=== PATIENT | female | born 2005 | race Caucasian/White ===

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

== ENCOUNTER 2023-01-04 17:14 | Emergency (ER) | payer MEDICAID, SELFPAY ==
[2023-01-04 17:17] VITALS: BP 125/76; PULSE 99; RESP 16; TEMP 36.7; O2SAT 98; BMI 23.3
--- NOTE | 2023-01-04 17:41 | W.ED.FEMALGU ---
HPI - Female Genitourinary General: Chief complaint: Vaginal Bleeding Stated complaint: abd Pain Time Seen by Provider: 01/04/23 17:17 Source: patient Mode of arrival: ambulatory Limitations: no limitations History of Present Illness: Patient presents to the emergency department today for evaluation treatment of abnormal vaginal bleeding. Patient reports that she started having generalized abdominal cramps last night and, developed a little bit of spotting this morning. She indicates that prior to arrival she had sudden onset of significant vaginal bleeding including some clots. Patient reports she typically has 3-day periods that are generally very light. She states she is very regular and indicates that this bleeding seems early in her normal cycle. Patient is not currently on any type of control and is sexually active. She admits it is possible that she could be . Patient is felt nauseated without any vomiting. She has not had any diarrhea. She states she has felt chilled but no fevers. Review of Systems General: Reports: 10 or more systems reviewed and unremarkable except in HPI and below PFSH ED PFSH: Surgical History History of nasal polypectomy Hx of cholecystectomy Social History Smoking and tobacco status: never smoked Physical Exam Const: COMMON NORMALS: no acute distress, patient oriented x3 and alert HENMT: COMMON NORMALS: normocephalic, atraumatic, hearing grossly normal bilaterally and moist oral mucous membranes HEAD & SCALP: normocephalic and atraumatic Eye: COMMON NORMALS: Equal, round and reactive pupils present, EOMs intact bilaterally and conjunctivae normal CONJUNCTIVA: Yes conjunctivae normal PUPIL: Yes Equal, round and reactive pupils present Neck/C-Spine: COMMON NORMALS: full ROM and no JVD Lymph: LYMPHATIC: no lymphadenopathy noted Resp: COMMON NORMALS: normal respiratory effort, No retractions, No use of accessory muscles and clear to auscultation bilaterally AUSCULTATION: clear to auscultation bilaterally Cardio: COMMON NORMALS: no JVD, regular rate and regular rhythm RATE: regular rate RHYTHM: regular rhythm GI: OTHER: Normoactive bowel sounds. Patient is nontender on palpation. Abdomen is soft. : COMMON NORMALS: Yes no CVA tenderness BLADDER/KIDNEY EXAM: Yes no CVA tenderness Back/Pelvis: COMMON NORMALS: no CVA tenderness, no thoracic nor lumbar tenderness and thoraco-lumbar ROM normal Extremity: COMMON NORMALS: normal to inspection, full ROM and capillary refill normal Neuro: COMMON NORMALS: patient oriented x3 SENSORIUM/ORIENTATION: Yes alert Psych: COMMON NORMALS: mental status grossly normal, Normal thought process present, cooperative, normal affect and activity/motor behavior normal THOUGHT PROCESS: Normal thought process present Skin: COMMON NORMALS: no rashes or lesions noted and no wounds GENERAL SKIN EXAM: no rashes or lesions noted Course Vital Signs: Vital signs: Vital Signs Temperature 98.1 F 01/04/23 17:17 Pulse Rate 75 01/04/23 18:23 Respiratory Rate 16 01/04/23 18:23 Blood Pressure 122/66 01/04/23 18:23 Pulse Oximetry 98 01/04/23 18:23 Oxygen Delivery Me thod Room Air 01/04/23 18:23 MDM - Female Medical Decision Making Patient's urine test is negative. She shows no signs of any acute anemia and no signs of urinary tract infection. We had discussed having an ultrasound performed and, when ultrasound was ordered, patient declined having the ultrasound performed as she saw the coordinate measuring machine technician was a male. She refused a male biomass technician-even with her significant other and a female staff member in the room with her. Dr. Henry was notified by the staff of the patient's refusal of evaluation and he indicated patient could leave AMA. Patient was informed that at this time, there were no acute findings including no concerns for miscarriage as her urine hormone was negative however, without a full examination and evaluation here through the emergency department we are not able to rule out other potential harmful causes of abnormal vaginal bleeding. Patient verbalized understanding. Differential Diagnosis Likely abdominal pain (Miscarriage, subchorionic hemorrhage, abnormal menstrual cycle, PCOS, fibroid, abnormal endometrial thickening) and endometriosis Lab Data 01/04/23 17:45 01/04/23 17:30 Laboratory Results WBC 11.6 10^3/uL (4.5-13.0) 01/04/23 17:45 RBC 4.63 10^6/uL (4.1-5.3) 01/04/23 17:45 Hgb 13.6 g/dL (11.5-15.3) 01/04/23 17:45 Hct 40.9 % (37.0-47.0) 01/04/23 17:45 MCV 88.3 fl (81-99) 01/04/23 17:45 MCH 29.4 pg (28.0-34.0) 01/04/23 17:45 MCHC 33.3 g/dL (30.0-36.0) 01/04/23 17:45 RDW 12.2 % (12.1-15.1) 01/04/23 17:45 Plt Count 365 10^3/cmm (130-400) 01/04/23 17:45 MPV 9.8 fL (7.4-10.4) 01/04/23 17:45 Neut % (Auto) 72.7 % 01/04/23 17:45 Lymph % (Auto) 18.9 % 01/04/23 17:45 [place] % (Auto) 6.9 % 01/04/23 17:45 Eos % (Auto) 0.9 % 01/04/23 17:45 Baso % (Auto) 0.3 % 01/04/23 17:45 Neut # (Auto) 8.45 10^3/uL (1.8-8.0) H 01/04/23 17:45 Lymph # (Auto) 2.2 10^3/uL (1.5-6.5) 01/04/23 17:45 [place] # (Auto) 0.8 10^3/uL (0.2-0.9) 01/04/23 17:45 Eos # (Auto) 0.1 10^3/uL (0.0-0.8) 01/04/23 17:45 Baso # (Auto) 0.0 10^3/uL (0.0-0.1) 01/04/23 17:45 Nucleated RBC % (auto) 0 % 01/04/23 17:45 Nucleated RBCs # 0.0 /100WBC 01/04/23 17:45 Sodium 138 mmol/L (136-145) 01/04/23 17:30 Potassium 3.8 mmol/L (3.5-5.1) 01/04/23 17:30 Chloride 103 mmol/L (98-107) 01/04/23 17:30 Carbon Dioxide 23 mmol/L (22-29) 01/04/23 17:30 Anion Gap 15.8 (5-19) 01/04/23 17:30 BUN 12 mg/dL (6-20) 01/04/23 17:30 Creatinine 0.5 mg/dL (0.5-0.9) 01/04/23 17:30 GFR Calculation 158.9 mL/min (90-130) H 01/04/23 17:30 Glucose 98 mg/dL (65-115) 01/04/23 17:30 Calculated Osmolality 286 mOsm/kg (285-295) 01/04/23 17:30 Calcium 8.9 mg/dL (8.5-10.5) 01/04/23 17:30 Total Bilirubin 0.6 mg/dL (0.15-1.2) 01/04/23 17:30 AST 20 U/L (0-32) 01/04/23 17:30 ALT 14 U/L (0-33) 01/04/23 17:30 Alkaline Phosphatase 78 U/L (35-105) 01/04/23 17:30 Total Protein 7.5 g/dL (6.6-8.7) 01/04/23 17:30 Albumin 4.5 g/dL (3.5-5.2) 01/04/23 17:30 Globulin 3.0 g/dL (1.3-4.6) 01/04/23 17:30 HCG, Qual Negative (Negative) 01/04/23 17:45 Urine Color Red (Yellow) 01/04/23 17:45 Urine Appearance Hazy (CLEAR) A 01/04/23 17:45 Urine pH 6 (5-7) 01/04/23 17:45 Ur Specific [place] 1.010 (1.005-1.030) 01/04/23 17:45 Urine Protein Trace (Negative) 01/04/23 17:45 Urine Glucose (UA) Norm (Normal) 01/04/23 17:45 Urine Ketones Negative (Negative) 01/04/23 17:45 Urine Blood 3+ (Negative) H 01/04/23 17:45 Urine Nitrate Negative (Negative) 01/04/23 17:45 Urine Bilirubin Neg (Negative) 01/04/23 17:45 Urine Urobilinogen Norm mg/dL (Negative) 01/04/23 17:45 Ur Leukocyte Esterase Trace (Negative) H 01/04/23 17:45 Urine RBC Too numerous to cnt /hpf (0-2) H 01/04/23 17:45 Urine WBC 5-10 /hpf (0-5) H 01/04/23 17:45 Ur Squamous Epith Cells 0-4 /hpf (0-5) H 01/04/23 17:45 Amorphous Sediment Not Reportable 01/04/23 17:45 Urine Bacteria 1+ /hpf (NONE) H 01/04/23 17:45 Discharge Plan Discharge Patient Disposition: Left Against Medical Advice Clinical Impression: Vaginal bleeding Condition: Stable Prescriptions: No Action [id number] [Bromfed DM] 2-30-10 mg/5 mL syrup 7.5 ml PO Q6H PRN (Reason: sinus symptoms) Qty: 118 0RF albuterol sulfate [Ventolin HFA] 90 mcg/actuation HFA aerosol inhaler 1 - 2 puff inhalation Q6H PRN (Reason: shortness of breath or wheezing) Qty: 8.5 0RF Referrals: Noemi Al DO [Primary Care Provider] - Discharge Diet: Usual diet Discharge Activity: Resume usual activity Coding Level of Care Code ED Gasket Supervisor for Chg Jasmin
[2023-01-04] MEDS: ondansetron 2 mg/ML SDV 2 mL 4 MG IVP (17:52)
[2023-01-04 17:55] LABS: Basophils % 0.3 %; Eosinophils # 0.1 10^3/uL (0.0-0.8); Eosinophils % 0.9 %; Hematocrit 40.9 % (37.0-47.0); Hemoglobin 13.6 g/dL (11.5-15.3); Lymphocytes # 2.2 10^3/uL (1.5-6.5); Lymphocytes % 18.9 %; Mean Corpuscular HGB Conc 33.3 g/dL (30.0-36.0); Mean Corpuscular Hemoglobin 29.4 pg (28.0-34.0); Mean Corpuscular Volume 88.3 fl (81-99); Mean Platelet Volume 9.8 fL (7.4-10.4); Monocytes # 0.8 10^3/uL (0.2-0.9); Monocytes % 6.9 %; Neutrophils # 8.45 10^3/uL (1.8-8.0); Neutrophils % 72.7 %; Nucleated Red Blood Cells % 0 %; Platelet Count 365 10^3/cmm (130-400); Red Blood Count 4.63 10^6/uL (4.1-5.3); Red Cell Distribution Width 12.2 % (12.1-15.1); White Blood Count 11.6 10^3/uL (4.5-13.0)
[2023-01-04 18:05] LABS: Alanine Aminotransferase 14 U/L (0-33); Albumin Level 4.5 g/dL (3.5-5.2); Alkaline Phosphatase 78 U/L (35-105); Anion Gap 15.8 (5-19); Aspartate Amino Transferase 20 U/L (0-32); Blood Urea Nitrogen 12 mg/dL (6-20); Calcium 8.9 mg/dL (8.5-10.5); Carbon Dioxide 23 mmol/L (22-29); Chloride 103 mmol/L (98-107); Glomerular Filtration Rate 158.9 mL/min (90-130); Glucose 98 mg/dL (65-115); Osmolality Calculated 286 mOsm/kg (285-295); Potassium 3.8 mmol/L (3.5-5.1); Sodium 138 mmol/L (136-145); Total Bilirubin 0.6 mg/dL (0.15-1.2); Total Protein 7.5 g/dL (6.6-8.7)
[2023-01-04 18:06] LABS: HCG Qualitative Urine. Negative (Negative)
[2023-01-04 18:18] LABS: Add Urine Microscopic? YES; Bilirubin Urine Neg (Negative); Blood Urine 3+ (Negative); Glucose Urine UA Norm (Normal); Ketones Urine Negative (Negative); Leukocyte Esterase Urine Trace (Negative); Nitrate Urine Negative (Negative); Protein Urine Trace (Negative); Urine Appearance Hazy (CLEAR); Urine Color Red (Yellow); Urobilinogen Urine Norm (Negative); pH Urine 6 (5-7)
[2023-01-04 18:19] LABS: RBC Urine TOO NUMEROUS TO CNT /hpf (0-2)
[2023-01-04 18:20] LABS: Bacteria Urine 1+ /hpf; Squamous Epithelial Cell Urine 0-4 /hpf (0-5)
[2023-01-04 18:21] LABS: Add Urine Culture? Yes
[2023-01-04 18:23] VITALS: BP 122/66; PULSE 75; RESP 16; O2SAT 98
--- NOTE | 2023-01-04 19:00 | PC.NURSE ---
Report received from Carlota MEADE.
--- NOTE | 2023-01-04 19:20 | PC.NURSE ---
RN to bedside to tell pt we do not have a female [facility] able to come in. Pt wants to leave AMA, provider notified.
== END 2023-01-04 20:34 | disposition left against medical advice (07) ==
PROVIDERS: Emergency Provider Physician Assistant; PCP Family Medicine
DX: N93.9 Abnormal uterine and vaginal bleeding, unspecified (principal); Z53.29 Procedure and treatment not carried out because of patient's decision for other reasons
CPT/HCPCS: 80053; 81001; 81025; 85025; 87086; 96374; 99284; J2405

== ENCOUNTER 2023-04-03 19:40 | Emergency (ER) | payer MEDICAID, SELFPAY ==
--- NOTE | 2023-04-03 19:41 | XR_ITS ---
WS: [id number] Exam: XR chest 1V portable [id number] Date/Time of Exam: 04/03/2023 7:41 PM Reason For Exam: cough Comparison 06/04/2022. Findings: The lungs are clear and fully expanded. Costophrenic angles are sharp. No infiltrates. Bronchovascula r relief appears normal. Cardiac silhouette is unremarkable. Bony elements are intact. IMPRESSION: Unremarkable chest radiograph.
[2023-04-03 19:53] VITALS: BP 127/72; PULSE 98; RESP 18; TEMP 36.9; O2SAT 100; BMI 26.4
[2023-04-03 20:25] LABS: SARS Covid-2 Antigen negative (Negative)
== END 2023-04-03 22:14 | disposition left against medical advice (07) ==
PROVIDERS: Emergency Medicine; Emergency Provider Family Medicine; PCP Family Medicine
DX: Z53.21 Procedure and treatment not carried out due to patient leaving prior to being seen by health care provider (principal)
CPT/HCPCS: 71045; 87426; 99284

== ENCOUNTER 2023-04-06 10:07 | Emergency (ER) | payer MEDICAID, SELFPAY ==
[2023-04-06 10:30] VITALS: BP 105/70; PULSE 108; RESP 20; O2SAT 100
--- NOTE | 2023-04-06 11:16 | ECG_ITS ---
[facility] Test Date: 2023-04-06 Pat Name: Alma Yang Department: Room: Gender: Female Assistant Distribution Manager: : 2005 Requested By: Carmen Dowling Order Number: [id number] Linda MD: Ricki Chan Measurements Intervals [place] Rate: 86 P: 48 VA: 153 QRS: 53 QRSD: 80 T: 45 QT: 349 QTc: 418 Interpretive Statements SINUS RHYTHM WITH SINUS ARRHYTHMIA Compared to ECG 06/02/2022 05:23:25 No significant changes Electronically Signed On 04-06-2023 13:09:47 CDT by Ricki Chan [id number]
--- NOTE | 2023-04-06 11:25 | W.ED.ANXIETY ---
HPI - Anxiety General: Chief Complaint: Anxiety Stated Complaint: right side body numb Time Seen by Provider: 04/06/23 10:31 History of Present Illness: Summer is a 17-year-old female that presents to the emergency department with complaints of left-sided chest pain when lifting. She also reports this pain is reproducible when she lays on her left side. Patient has considerable anxiety related to this chest pain due to family circumstances. Her mother is currently on heart transplant waiting list. She states that she will intermittently have palpitations. And will intermittently have numbness to face and extremities. She denies any nausea or vomiting shortness of breath. Patient does have a history of seasonal allergies and takes albuterol as needed as well as pseudoephedrine. Associated symptoms: Deny chest pain, chills, confusion, fever(s), headache(s), malaise, nausea, palpitations or vomiting Review of Systems General: Reports: 10 or more systems reviewed and unremarkable except in HPI and below Const: Denies: fever(s), chills, change in appetite, change in weight, fatigue or malaise Eyes: Denies: change in vision, eye discomfort, eye discharge or eye redness ENMT: Denies: throat pain, enlarged tonsils, odynophagia, hoarseness, ear or mastoid pain, ear discharge, change in hearing, tinnitus, nasal discharge, nasal congestion, post nasal drip or sinus pain Card: Denies: chest pain, palpitations, irregular heart rhythm, edema, dyspnea on exertion, orthopnea or leg pain with exertion Resp: Denies: dyspnea, productive cough, non-productive cough, wheezing, stridor or chest congestion GI: Denies: abdominal pain, nausea, vomiting, dysphagia, diarrhea, constipation, bloating, GI cramping or hematochezia : Denies: flank pain, difficulty voiding, dysuria, urinary frequency, urinary urgency, urinary hesitancy, oliguria or hematuria Musc: Denies: neck pain, back pain, extremity pain, joint pain, joint swelling, joint redness, joint warmth or muscle weakness Skin/Breast: Denies: rash, pruritus, erythema, photosensitivity or new lesions Neuro: Denies: headache(s), numbness in extremities, weakness in extremities, sensory changes, lack of coordination, difficulty walking, frequent falls, dizziness, confusion, Slurred speech present, difficulty communicating thoughts, seizure-like activity or involuntary movements Endo: Denies: polyuria, polydipsia or tired all the time [place]/Lymph: Denies: easy bruising or easy bleeding PFSH ED PFSH: Surgical History History of nasal polypectomy Hx of cholecystectomy Social History Smoking and tobacco status: never smoked Physical Exam Const: COMMON NORMALS: no acute distress, patient oriented x3 and alert GENERAL APPEARANCE: cooperative ORIENTATION/CONSCIOUSNESS: Yes awake, Yes oriented to person, Yes oriented to place and Yes oriented to time HENMT: COMMON NORMALS: normocephalic and atraumatic HEAD & SCALP: normocephalic and atraumatic FACE & SINUS: normal facial exam MOUTH: Normal oral and palatal mucosa present THROAT: posterior oropharynx normal Eye: COMMON NORMALS: Equal, round and reactive pupils present, EOMs intact bilaterally, conjunctivae normal and no scleral icterus GENERAL EYE: appearance normal, both eyes and all related structures ALIGNMENT: Yes alignment normal PERIORBITAL: periorbital findings normal CONJUNCTIVA: Yes conjunctivae normal PUPIL: Yes Equal, round and reactive pupils present Neck/C-Spine: COMMON NORMALS: full ROM GENERAL: Yes normal visual inspection Lymph: LYMPHATIC: no lymphadenopathy noted Chest: COMMONS NORMALS: normal inspection of the chest Breast/axilla inspection: Yes no chest deformity, asymmetry, normal contours, no nodules, masses, tenderness OTHER: Patient is tender to palpation over left breast. Resp: COMMON NORMALS: normal respiratory effort, No retractions, No use of accessory muscles and clear to auscultation bilaterally EFFORT & INSPECTION: Yes able to speak in complete sentences and Yes symmetric chest movement AUSCULTATION: clear to auscultation bilaterally Cardio: COMMON NORMALS: regular rate, regular rhythm and Peripheral pulses 2+ throughout RATE: regular rate RHYTHM: regular rhythm PERIPHERAL PULSES: Peripheral pulses 2+ throughout GI: COMMON NORMALS: Normal to inspection, nondistended, normoactive bowel sounds present, Soft to palpation, non-tender and No hepatosplenomegaly present INSPECTION: Yes normal to inspection AUSCULTATION: Yes normoactive bowel sounds PALPATION: Yes Soft to palpation and Yes No hepatosplenomegaly present RECTAL EXAM: deferred Extremity: COMMON NORMALS: normal to inspection GENERAL: Yes normal exam except as noted Neuro: COMMON NORMALS: patient oriented x3 SENSORIUM/ORIENTATION: Yes alert, Yes oriented to person, Yes oriented to place and Yes oriented to time CRANIAL NERVES: Yes CN normal except as noted Psych: COMMON NORMALS: mental status grossly normal, Normal thought process present, cooperative, activity/motor behavior normal, denies homicidal ideation and denies suicidal ideation THOUGHT PROCESS: Normal thought process present Skin: COMMON NORMALS: no rashes or lesions noted, no wounds and turgor normal GENERAL SKIN EXAM: no rashes or lesions noted and turgor normal Course Vital Signs: Vital signs: Vital Signs Pulse Rate 88 04/06/23 12:28 Respiratory Rate 18 04/06/23 12:28 Blood Pressure 105/70 04/06/23 10:30 Pulse Oximetry 98 04/06/23 12:28 Oxygen Delivery Me thod Room Air 04/06/23 10:30 MDM - Anxiety Medical Decision Making Differential diagnosis includes cardiovascular event, pneumonia, pleural effusion, pleurisy, anxiety. Patient underwent CT head, XR chest, EKG, laboratory evaluation. Evaluation diagnostic and laboratory revealed no acute findings. Patient did respond well to Vistaril and Toradol. Based on her exam and her report of complaints, likely that this is musculoskeletal in nature. She can go home and continue to observe her symptoms. I am giving her the day off since she is supposed to be working 6 hours. She needs to return to the emergency department if she develops any new symptoms or worsening symptoms Lab Data 04/06/23 11:25 04/06/23 11:[address] 04/06/23 11:31 IMPRESSION: No CT evidence of acute intracranial pathology. Laboratory Results WBC 6.88 10^3/uL (4.5-13.0) 04/06/23 11:25 RBC 4.27 10^6/uL (3.85-5.65) 04/06/23 11:25 Hgb 12.80 g/dL (12.4-14.8) 04/06/23 11:25 Hct 38.1 % (36-47) 04/06/23 11:25 MCV 89.2 fl (85-98) 04/06/23 11:25 MCH 30.0 pg (27-33) 04/06/23 11:25 MCHC 33.6 g/dL (30-55) 04/06/23 11:25 RDW 12.2 % (12.1-15.1) 04/06/23 11:25 Plt Count 326 10^3/cmm (157-399) 04/06/23 11:25 MPV 9.9 fL (7.4-10.4) 04/06/23 11:25 Neut % (Auto) 58.3 % 04/06/23 11:25 Lymph % (Auto) 26.7 % 04/06/23 11:25 [place] % (Auto) 12.1 % 04/06/23 11:25 Eos % (Auto) 2.0 % 04/06/23 11:25 Baso % (Auto) 0.6 % 04/06/23 11:25 Neut # (Auto) 4.01 10^3/uL (1.8-8.0) 04/06/23 11:25 Lymph # (Auto) 1.8 10^3/uL (1.5-6.5) 04/06/23 11:25 [place] # (Auto) 0.8 10^3/uL (0.2-0.9) 04/06/23 11:25 Eos # (Auto) 0.1 10^3/uL (0.0-0.8) 04/06/23 11:25 Baso # (Auto) 0.0 10^3/uL (0.0-0.1) 04/06/23 11:25 Nucleated RBC % (auto) 0 % 04/06/23 11:25 Nucleated RBCs # 0.0 /100WBC 04/06/23 11:25 Sodium 140 mmol/L (136-145) 04/06/23 11:25 Potassium 3.9 mmol/L (3.5-5.1) 04/06/23 11:25 Chloride 106 mmol/L (98-107) 04/06/23 11:25 Carbon Dioxide 25 mmol/L (22-29) 04/06/23 11:25 Anion Gap 12.9 (5-19) 04/06/23 11:25 BUN 12 mg/dL (6-20) 04/06/23 11:25 Creatinine 0.5 mg/dL (0.5-0.9) 04/06/23 11:25 GFR Calculation 158.9 mL/min (90-130) H 04/06/23 11:25 Glucose 89 mg/dL (65-115) 04/06/23 11:25 Calculated Osmolality 289 mOsm/kg (285-295) 04/06/23 11:25 Calcium 8.8 mg/dL (8.5-10.5) 04/06/23 11:25 Total Bilirubin 0.7 mg/dL (0.15-1.2) 04/06/23 11:25 AST 18 U/L (0-32) 04/06/23 11:25 ALT 12 U/L (0-33) 04/06/23 11:25 Alkaline Phosphatase 71 U/L (35-105) 04/06/23 11:25 Total Protein 6.7 g/dL (6.6-8.7) 04/06/23 11:25 Albumin 4.2 g/dL (3.5-5.2) 04/06/23 11:25 Globulin 2.5 g/dL (1.3-4.6) 04/06/23 11:25 Discharge Plan Discharge Patient Disposition: Home Clinical Impression: Musculoskeletal chest pain, Acute anxiety, Hyperventilation Condition: Stable Prescriptions: New hydroxyzine pamoate [Vistaril] 25 mg capsule 25 mg PO BID PRN (Reason: Anxiousness) Qty: 20 0RF ketorolac 10 mg tablet 10 mg PO TID PRN (Reason: pain) 5 Days Qty: 15 0RF ondansetron 4 mg tablet,disintegrating 4 mg PO Q8H 5 Days Qty: 15 0RF No Action No Known Home Medications Discharge Orders: Discharge ED (Routine); Ordered 04/06/23 Ordered By: Carmen Dowling [facility] Referrals: Noemi Al DO [Primary Care Provider] - Discharge Diet: Advance as tolerated Discharge Activity: Resume usual activity Patient Instructions: Hydroxyzine (By mouth), Ketorolac (By mouth) (Toradol), Ondansetron (By mouth), Chest Wall Pain (ED), Pain Management Activity Restrictions/Additional Instructions: Please return to the emergency department for new concerning or worsening symptoms Coding Level of Care Code ED Casino Slot Supervisor for Ceci Castellanos
--- NOTE | 2023-04-06 11:31 | CTR_ITS ---
PROCEDURE INFORMATION: Exam: CT Head Without Contrast Exam date and time: 04/06/2023 12:17 PM Age: 17 years old Clinical indication: Numbness / parasthesia; Left; Additional info: Chest pain, numbness TECHNIQUE: Imaging protocol: Computed tomography of the head without contrast. Axial, coronal and sagittal reformatted images were created and reviewed. Radiation optimization: All CT scans at this facility use at least one of these dose optimization techniques: automated exposure control; mA and/or kV adjustment per patient size (includes targeted exams where dose is matched to clinical indication); or iterative reconstruction. REPORTING DATA: Count of CT and Cardiac NM exams in prior 12 months: This patient has received 2 known CTs and 0 known cardiac nuclear medicine studies in the 12 months prior to the current study. COMPARISON: CR XR cervical spine 3V* [id number] 09/12/2022 6:09 PM RADIATION DOSE METRICS: Total DLP (mGy-cm): 974.88 FINDINGS: Brain: No CT evidence of acute intracranial hemorrhage or acute territorial infarction. No significant mass effect or midline shift. Basal cisterns patent. Cerebral ventricles: Normal in size and configuration. Paranasal sinuses: Unremarkable. No fluid levels. Mastoid air cells: Grossly unremarkable. Bones/joints: No acute osseous abnormality. Soft tissues: Grossly unremarkable. CT/CT head wo con* [id number] IMPRESSION: No CT evidence of acute intracranial pathology.
--- NOTE | 2023-04-06 11:32 | XRR_ITS ---
PROCEDURE INFORMATION: Exam: XR Chest Exam date and time: 04/06/2023 11:46 AM Age: 17 years old Clinical indication: Chest wall pain; Additional info: Chest pain TECHNIQUE: Imaging protocol: Radiologic exam of the chest. Views: 1 view. COMPARISON: CR XR chest 1V portable [id number] 04/03/2023 7:55 PM FINDINGS: Lungs: Unremarkable. No consolidation. Pleural spaces: Unremarkable. No pleural effusion. No pneumothorax. Heart/Mediastinum: Unremarkable. No cardiomegaly. Bones/joints: Unremarkable. XR/XR chest 1V portable [id number] IMPRESSION: No acute radiographic findings.
[2023-04-06 11:41] LABS: Basophils % 0.6 %; Eosinophils # 0.1 10^3/uL (0.0-0.8); Hematocrit 38.1 % (36-47); Lymphocytes # 1.8 10^3/uL (1.5-6.5); Lymphocytes % 26.7 %; Mean Corpuscular HGB Conc 33.6 g/dL (30-55); Mean Corpuscular Volume 89.2 fl (85-98); Mean Platelet Volume 9.9 fL (7.4-10.4); Monocytes # 0.8 10^3/uL (0.2-0.9); Monocytes % 12.1 %; Neutrophils # 4.01 10^3/uL (1.8-8.0); Neutrophils % 58.3 %; Nucleated Red Blood Cells % 0 %; Platelet Count 326 10^3/cmm (157-399); Red Blood Count 4.27 10^6/uL (3.85-5.65); Red Cell Distribution Width 12.2 % (12.1-15.1); White Blood Count 6.88 10^3/uL (4.5-13.0)
[2023-04-06] MEDS: ketorolac 30 mg/mL INJ IVP (11:51)
[2023-04-06] MEDS: hyDROXYzine 25 mg Capsule PO (11:51)
[2023-04-06 12:10] LABS: Alanine Aminotransferase 12 U/L (0-33); Albumin Level 4.2 g/dL (3.5-5.2); Alkaline Phosphatase 71 U/L (35-105); Anion Gap 12.9 (5-19); Aspartate Amino Transferase 18 U/L (0-32); Blood Urea Nitrogen 12 mg/dL (6-20); Calcium 8.8 mg/dL (8.5-10.5); Carbon Dioxide 25 mmol/L (22-29); Chloride 106 mmol/L (98-107); Globulin 2.5 g/dL (1.3-4.6); Glomerular Filtration Rate 158.9 mL/min (90-130); Glucose 89 mg/dL (65-115); Osmolality Calculated 289 mOsm/kg (285-295); Potassium 3.9 mmol/L (3.5-5.1); Sodium 140 mmol/L (136-145); Total Bilirubin 0.7 mg/dL (0.15-1.2); Total Protein 6.7 g/dL (6.6-8.7)
[2023-04-06 12:28] VITALS: PULSE 88; RESP 18; O2SAT 98
--- NOTE | 2023-04-06 12:36 | PC.NURSE ---
PT PLACED ON CONTINUOUS NIBP,S PO2, AND CM
== END 2023-04-06 13:37 | disposition home or self-care (01) ==
PROVIDERS: Emergency Provider Nurse Practitioner; PCP Family Medicine
DX: R07.89 Other chest pain (principal); F41.9 Anxiety disorder, unspecified; R06.4 Hyperventilation
CPT/HCPCS: 36415; 70450; 71045; 80053; 85025; 93005; 96374; 99285; J1885

== ENCOUNTER 2023-06-16 18:24 | Emergency (ER) | payer MEDICAID, SELFPAY ==
[2023-06-16 18:33] VITALS: BP 114/61; PULSE 96; RESP 16; TEMP 36.6; O2SAT 98; BMI 25.0
--- NOTE | 2023-06-16 18:44 | CTR_ITS ---
PROCEDURE INFORMATION: Exam: CT Head Without Contrast Exam date and time: 06/16/2023 6:54 PM Age: 17 years old Clinical indication: Pain; Headache not specified; Additional info: New onset R sided headache TECHNIQUE: Imaging protocol: Computed tomography of the head without contrast. Radiation optimization: All CT scans at this facility use at least one of these dose optimization techniques: automated exposure control; mA and/or kV adjustment per patient size (includes targeted exams where dose is matched to clinical indication); or iterative reconstruction. REPORTING DATA: Count of CT and Cardiac NM exams in prior 12 months: This patient has received [address] and 0 known cardiac nuclear medicine studies in the 12 months prior to the current study. COMPARISON: CT head wo con* [id number] 04/06/2023 12:17 PM RADIATION DOSE METRICS: Total DLP (mGy-cm): 996.78 FINDINGS: Brain: Normal. No hemorrhage. Unremarkable white matter. No mass effect. Cerebral ventricles: No ventriculomegaly. Paranasal sinuses: Visualized sinuses are unremarkable. No fluid levels. Mastoid air cells: Visualized mastoid air cells are well aerated. Bones/joints: Unremarkable. No acute fracture. Soft tissues: Unremarkable. CT/CT head wo con* [id number] IMPRESSION: No acute intracranial abnormality.
--- NOTE | 2023-06-16 18:44 | W.ED.HA ---
HPI - Headache General: Chief Complaint: Headache Stated Complaint: migraine, r side facial pressure tingle Time Seen by Provider: 06/16/23 18:32 Source: patient Mode of arrival: ambulatory History of Present Illness: 17yo female [resent to the ER with new onset R sided migraine for the last week. Pt has had photohobia and mild nausea. No new head trauma. She tried various [id number] medications no relief. No history of migraines in the past. MD elicited complaint: headache Onset (ago): week(s) (1) Exacerbating factors: none Relieving factors: nothing Associated symptoms: Deny chest pain, confusion, cough, diaphoresis, eye pain, eye redness, fever(s), lightheadedness, loss of vision, malaise, nausea, neck stiffness, numbness, paresthesias, photophobia, pre-syncope, rash, seizures, short of breath, sound sensitivity, syncope, vomiting or weakness Treatments prior to arrival: none Review of Systems Const: Denies: fever(s), chills, fatigue, malaise or diaphoresis Card: Denies: chest pain, lightheadedness, syncope or pre-syncope Resp: Denies: dyspnea GI: Denies: abdominal pain, nausea or vomiting : Denies: flank pain, dysuria, urinary frequency or urinary urgency Musc: Reports: neck pain; Denies: back pain Skin/Breast: Denies: rash Neuro: Reports: headache(s); Denies: confusion PFSH ED PFSH: Surgical History History of nasal polypectomy Hx of cholecystectomy Social History Smoking and tobacco/nicotine status: never used tobacco/nicotine Female Reproductive History: Date of last menstrual period: 06/09/23 Physical Exam Const: GENERAL APPEARANCE: cooperative ORIENTATION/CONSCIOUSNESS: Yes awake, Yes oriented to person, Yes oriented to place and Yes oriented to time HENMT: COMMON NORMALS: normocephalic, atraumatic and hearing grossly normal bilaterally HEAD & SCALP: normocephalic and atraumatic Eye: DIRECT OPHTHALMOSCOPY: No photophobia Resp: COMMON NORMALS: normal respiratory effort, No retractions, No use of accessory muscles and clear to auscultation bilaterally AUSCULTATION: clear to auscultation bilaterally Cardio: COMMON NORMALS: regular rate, regular rhythm and No murmurs present (Cardio) RATE: regular rate RHYTHM: regular rhythm GI: COMMON NORMALS: Soft to palpation and No hepatosplenomegaly present AUSCULTATION: Yes normoactive bowel sounds PALPATION: Yes Soft to palpation, No Tenderness to palpation present (GI), No Guarding due to palpation present (GI) and Yes No hepatosplenomegaly present Extremity: COMMON NORMALS: normal to inspection, capillary refill normal, no clubbing, cyanosis or edema, no calf tenderness and no pedal edema Neuro: SENSORIUM/ORIENTATION: Yes oriented to person, Yes oriented to place and Yes oriented to time Skin: COMMON NORMALS: no rashes or lesions noted GENERAL SKIN EXAM: no rashes or lesions noted Course Vital Signs: Vital signs: Vital Signs Temperature 98 F 06/16/23 20:43 Pulse Rate 96 06/16/23 20:43 Respiratory Rate 16 06/16/23 20:43 Blood Pressure 114/61 06/16/23 20:43 Pulse Oximetry 98 06/16/23 20:43 MDM - Headache Medical Decision Making Improved with medications given. Patient declined that valproic acid discharge patient home with Phenergan to use as needed along with ibuprofen or Tylenol if has recurrent headaches. If persists follow-up with primary care doctor. Reviewed results of the CT which were negative. Medical Records I reviewed the patient's medical records. Lab Data I reviewed the patient's lab results. 06/16/23 19:14 06/16/23 19:[address] 06/16/23 18:44 IMPRESSION: No acute intracranial abnormality. Laboratory Results WBC 7.88 10^3/uL (4.5-13.0) 06/16/23 19:14 RBC 4.17 10^6/uL (3.85-5.65) 06/16/23 19:14 Hgb 12.60 g/dL (12.4-14.8) 06/16/23 19:14 Hct 37.2 % (36-47) 06/16/23 19:14 MCV 89.2 fl (85-98) 06/16/23 19:14 MCH 30.2 pg (27-33) 06/16/23 19:14 MCHC 33.9 g/dL (30-55) 06/16/23 19:14 RDW 12.2 % (12.1-15.1) 06/16/23 19:14 Plt Count 378 10^3/cmm (157-399) 06/16/23 19:14 MPV 9.6 fL (7.4-10.4) 06/16/23 19:14 Neut % (Auto) 56.0 % 06/16/23 19:14 Lymph % (Auto) 31.9 % 06/16/23 19:14 Prentiss % (Auto) 10.2 % 06/16/23 19:14 Eos % (Auto) 1.1 % 06/16/23 19:14 Baso % (Auto) 0.5 % 06/16/23 19:14 Neut # (Auto) 4.42 10^3/uL (1.8-8.0) 06/16/23 19:14 Lymph # (Auto) 2.5 10^3/uL (1.5-6.5) 06/16/23 19:14 Prentiss # (Auto) 0.8 10^3/uL (0.2-0.9) 06/16/23 19:14 Eos # (Auto) 0.1 10^3/uL (0.0-0.8) 06/16/23 19:14 Baso # (Auto) 0.0 10^3/uL (0.0-0.1) 06/16/23 19:14 Nucleated RBC % (auto) 0 % 06/16/23 19:14 Nucleated RBCs # 0.0 /100WBC 06/16/23 19:14 Sodium 139 mmol/L (136-145) 06/16/23 19:14 Potassium 3.8 mmol/L (3.5-5.1) 06/16/23 19:14 Chloride 104 mmol/L (98-107) 06/16/23 19:14 Carbon Dioxide 26 mmol/L (22-29) 06/16/23 19:14 Anion Gap 12.8 (5-19) 06/16/23 19:14 BUN 12 mg/dL (6-20) 06/16/23 19:14 Creatinine 0.5 mg/dL (0.5-0.9) 06/16/23 19:14 GFR Calculation 158.9 mL/min (90-130) H 06/16/23 19:14 Glucose 98 mg/dL (65-115) 06/16/23 19:14 Calculated Osmolality 288 mOsm/kg (285-295) 06/16/23 19:14 Calcium 9.1 mg/dL (8.5-10.5) 06/16/23 19:14 Total Bilirubin 0.8 mg/dL (0.15-1.2) 06/16/23 19:14 AST 20 U/L (0-32) 06/16/23 19:14 ALT 12 U/L (0-33) 06/16/23 19:14 Alkaline Phosphatase 71 U/L (35-105) 06/16/23 19:14 Total Protein 6.9 g/dL (6.6-8.7) 06/16/23 19:14 Albumin 4.5 g/dL (3.5-5.2) 06/16/23 19:14 Globulin 2.4 g/dL (1.3-4.6) 06/16/23 19:14 All radiology interpretation(s) finalized by discharge Discharge Plan Discharge Patient Disposition: Home Clinical Impression: Migraine Condition: Stable Prescriptions: New promethazine 25 mg tablet 25 mg PO Q6H PRN (Reason: Headache, nausea or vomiting) Qty: 20 0RF No Action ibuprofen 800 mg tablet 800 mg PO Q8H PRN (Reason: pain) Qty: 30 0RF methocarbamol 750 mg tablet 750 mg PO Q8H PRN (Reason: pain) Qty: 30 0RF Discharge Orders: Discharge ED (Routine); Ordered 06/16/23 Ordered By: Faustino Sosa Referrals: Conor Ramirez FNP [Primary Care Provider] - Discharge Diet: Usual diet Discharge Activity: Resume usual activity Patient Instructions: Migraine Headache (ED), Acute Headache (ED), Opioid Safety, Pain Management Activity Restrictions/Additional Instructions: Thank you for choosing [facility] for your healthcare needs today. Please realize this is an emergency room and that we are providing you with a medical screening exam and this may not be complete and all inclusive of all the testing and or work up that you may need to determine your ailment or severity of your illness. It is very important that you follow up as instructed or that you return to the Emergency Department should you have concerns or if your condition changes or worsens in any way. Coding Level of Care Code ED Roll Out Manager for Ceci Castellanos
[2023-06-16] MEDS: ketorolac 30 mg/mL INJ IVP (19:14)
[2023-06-16] MEDS: diphenhydrAMINE 50 mg/mL SDV 1mL IVP (19:15)
[2023-06-16] MEDS: sodium chloride 0.9% 1,000 ML 999 ML IV (19:18)
[2023-06-16 19:23] LABS: Basophils % 0.5 %; Eosinophils # 0.1 10^3/uL (0.0-0.8); Eosinophils % 1.1 %; Hematocrit 37.2 % (36-47); Lymphocytes # 2.5 10^3/uL (1.5-6.5); Lymphocytes % 31.9 %; Mean Corpuscular HGB Conc 33.9 g/dL (30-55); Mean Corpuscular Hemoglobin 30.2 pg (27-33); Mean Corpuscular Volume 89.2 fl (85-98); Mean Platelet Volume 9.6 fL (7.4-10.4); Monocytes # 0.8 10^3/uL (0.2-0.9); Monocytes % 10.2 %; Neutrophils # 4.42 10^3/uL (1.8-8.0); Nucleated Red Blood Cells % 0 %; Platelet Count 378 10^3/cmm (157-399); Red Blood Count 4.17 10^6/uL (3.85-5.65); Red Cell Distribution Width 12.2 % (12.1-15.1); White Blood Count 7.88 10^3/uL (4.5-13.0)
[2023-06-16 19:37] LABS: Alanine Aminotransferase 12 U/L (0-33); Albumin Level 4.5 g/dL (3.5-5.2); Alkaline Phosphatase 71 U/L (35-105); Aspartate Amino Transferase 20 U/L (0-32); Blood Urea Nitrogen 12 mg/dL (6-20); Calcium 9.1 mg/dL (8.5-10.5); Carbon Dioxide 26 mmol/L (22-29); Chloride 104 mmol/L (98-107); Globulin 2.4 g/dL (1.3-4.6); Glomerular Filtration Rate 158.9 mL/min (90-130); Glucose 98 mg/dL (65-115); Osmolality Calculated 288 mOsm/kg (285-295); Sodium 139 mmol/L (136-145); Total Bilirubin 0.8 mg/dL (0.15-1.2); Total Protein 6.9 g/dL (6.6-8.7)
[2023-06-16 19:40] LABS: Anion Gap 12.8 (5-19); Potassium 3.8 mmol/L (3.5-5.1)
[2023-06-16] MEDS: metoclopramide 5 mg/mL SDV 2 mL 10 MG IVP (19:44)
[2023-06-16] MEDS: valproic acid inj 500 MG in sodium chloride 0.9% 50 ML 55 MG IV (19:59)
[2023-06-16 20:43] VITALS: BP 114/61; PULSE 96; RESP 16; TEMP 36.6; O2SAT 98
--- NOTE | 2023-06-16 20:44 | PC.NURSE ---
pt refused valporic acid infusion after start of administration. pt states she did not want to be here for another hour of infusion. pt discharged.
== END 2023-06-16 20:44 | disposition home or self-care (01) ==
PROVIDERS: Emergency Provider Family Medicine; PCP Nurse Practitioner Family
DX: G43.909 Migraine, unspecified, not intractable, without status migrainosus (principal)
CPT/HCPCS: 70450; 80053; 85025; 96361; 96374; 96375; 99285; J1200; J1885; J2765; J3490; J7030

== ENCOUNTER 2023-06-21 22:12 | Emergency (ER) | payer MEDICAID, SELFPAY ==
[2023-06-21 22:54] VITALS: BP 114/73; PULSE 80; RESP 16; O2SAT 99
[2023-06-22 00:37] VITALS: BP 121/56; PULSE 77; RESP 16; O2SAT 98
--- NOTE | 2023-06-22 01:55 | W.ED.GENADLT ---
HPI - General Adult General: Chief complaint: General Medical Stated complaint: Left arm pain after IV Time Seen by Provider: 06/22/23 00:13 Source: patient History of Present Illness: 18-year-old female complaining of left upper extremity diffuse pain radiating into her breast and chest on the left side. She has noticed this after having had an IV in the ER earlier in the week. She saw her doctor on Friday, was prescribed prednisone, took the first dose, but it did not seem to help. When pain radiated into chest, she became worried. No redness, no fever, no vomiting. No significant shortness of breath. Associated symptoms: Reports chest pain; Deny dyspnea, palpitations or vomiting Review of Systems Const: Denies: fever(s) ENMT: Denies: throat pain Card: Reports: chest pain; Denies: palpitations, irregular heart rhythm or edema Resp: Denies: dyspnea, productive cough or non-productive cough GI: Denies: abdominal pain or vomiting Musc: Reports: extremity pain; Denies: back pain or extremity swelling PFSH ED PFSH: Surgical History History of nasal polypectomy Hx of cholecystectomy Social History Smoking and tobacco/nicotine status: never used tobacco/nicotine Physical Exam Const: COMMON NORMALS: no acute distress GENERAL APPEARANCE: cooperative; not ill appearing and not frail appearing HENMT: COMMON NORMALS: normocephalic, atraumatic and Normal external nose present HEAD & SCALP: normocephalic and atraumatic FACE & SINUS: normal facial exam and face symmetric NOSE: Normal external nose present Eye: COMMON NORMALS: Equal, round and reactive pupils present and EOMs intact bilaterally PUPIL: Yes Equal, round and reactive pupils present Neck/C-Spine: GENERAL: Yes trachea midline Chest: CHEST: Yes Symmetrical chest wall rise Resp: COMMON NORMALS: normal respiratory effort, No retractions, No use of accessory muscles and clear to auscultation bilaterally AUSCULTATION: clear to auscultation bilaterally Cardio: COMMON NORMALS: regular rate and regular rhythm RATE: regular rate RHYTHM: regular rhythm GI: COMMON NORMALS: Normal to inspection, nondistended, normoactive bowel sounds present Extremity: NARRATIVE EXTREMITY EXAM: Examination of the left upper extremity reveals no edema. There is no redness. There is no streaking. Range of motion is normal. there's tenderness along the medial aspect of the arm that is diffuse. Palpation of the axilla reveals a small tender mass. Neuro: LISY COMA SCALE: document GCS findings Lisy coma scale eye opening: Spontaneous Lisy coma scale verbal response: Orientated Ilsy coma scale motor response: Obey commands Lisy coma scale total score: 15 SENSORY EXAM: Yes extremities (intact) Psych: COMMON NORMALS: speech normal SPEECH: Yes normal speech Skin: COMMON NORMALS: no rashes or lesions noted GENERAL SKIN EXAM: no rashes or lesions noted Course Vital Signs: Vital signs: Vital Signs Pulse Rate 82 06/22/23 02:24 Respiratory Rate 16 06/22/23 02:24 Blood Pressure 101/69 06/22/23 02:24 Pulse Oximetry 100 06/22/23 02:24 MDM - General Adult Medical Decision Making Patient is afebrile, nontachycardic, not on hypoxic. No redness noted to the arm. No edema. Bedside ultrasound performed by me reveals compressibility of the upper extremity veins including cephalic basilic axillary and subclavian. She will be allowed to discharge. We will treat with aspirin and antibiotics. She does have a tender swollen lymph node in the axillary position. No radiology studies performed this visit Discharge Plan Discharge Patient Disposition: Home Clinical Impression: Superficial thrombophlebitis, Acute lymphadenitis of arm Condition: Stable Prescriptions: New aspirin 325 mg capsule 325 mg PO DAILY Qty: 30 0RF hydrocodone-acetaminophen 5-325 mg tablet 1 tab PO Q8H PRN (Reason: pain) Qty: 7 0RF doxycycline hyclate 100 mg tablet 100 mg PO BID 7 Days Qty: 14 0RF No Action prednisone 20 mg tablet See Rx Instructions .Route .COMPLEX Qty: 11 0RF Rx Instructions: 2 tabs x 3 days, then 1 tabs x 3 days, then 1/2 tab x 3 days. Discharge Orders: Discharge ED (Routine); Ordered 06/22/23 Ordered By: Ryan Oshea Referrals: Conor Ramirez FNP [Primary Care Provider] - Patient Instructions: Adenitis (ED), Phlebitis (ED), Opioid Safety, Pain Management Activity Restrictions/Additional Instructions: Return for fever greater than 100, worsening pain despite treatment, worsening swelling of the arm, shortness of breath, other concerning symptoms. See your doctor next week for follow-up. Stand Alone Forms: Work/School Release Coding Level of Care Code ED Land Survey Technician for Ceci Castellanos
[2023-06-22] MEDS: doxycycline 100 mg Tablet PO (02:17)
[2023-06-22] MEDS: oxyCODONE-APAP 5-325 mg Tablet 1 TAB PO (02:17)
[2023-06-22 02:24] VITALS: BP 101/69; PULSE 82; RESP 16; O2SAT 100
== END 2023-06-22 02:25 | disposition home or self-care (01) ==
PROVIDERS: Emergency Provider Emergency Medicine; PCP Nurse Practitioner Family
DX: I80.8 Phlebitis and thrombophlebitis of other sites (principal); I88.8 Other nonspecific lymphadenitis
CPT/HCPCS: 99283

== ENCOUNTER 2023-06-25 18:56 | Emergency (ER) | payer MEDICAID, SELFPAY ==
[2023-06-25 19:05] VITALS: BP 113/77; PULSE 106; RESP 18; TEMP 36.7; O2SAT 94; BMI 25.0
--- NOTE | 2023-06-25 19:08 | ECG_ITS ---
[facility] Test Date: 2023-06-25 Pat Name: Alma Yang Department: Room: Gender: Female Top Inventory Control Executive: : 2005 Requested By: Hema Pizano Order Number: [id number] Linda MD: Mark Driver M.D. Measurements Intervals Rogers Rate: 105 P: 68 DE: 128 QRS: 88 QRSD: 77 T: 53 QT: 329 QTc: 436 Interpretive Statements SINUS TACHYCARDIA ABNORMAL RHYTHM ECG Compared to ECG 04/06/2023 11:53:11 Heart rate is increased Electronically Signed On 06-26-2023 12:51:04 GLOBAL IMPLEMENTATION MANAGER by Mark Driver M.D. [email or web address]
--- NOTE | 2023-06-25 19:11 | XRR_ITS ---
PROCEDURE INFORMATION: Exam: XR Chest Exam date and time: 06/25/2023 7:36 PM Age: 18 years old Clinical indication: Chest wall pain; Additional info: Palitation, chest pain TECHNIQUE: Imaging protocol: Radiologic exam of the chest. Views: 1 view. COMPARISON: CR XR chest 1V portable [id number] 04/06/2023 11:46 AM FINDINGS: Tubes, catheters and devices: Monitoring device projects over the mid chest. Lungs: Unremarkable. No consolidation. Pleural spaces: Unremarkable. No pleural effusion. No pneumothorax. Heart/Mediastinum: Unremarkable. No cardiomegaly. Bones/joints: Unremarkable. XR/XR chest 1V portable [id number] IMPRESSION: No acute findings.
--- NOTE | 2023-06-25 19:17 | ED_ITS ---
HPI - Chest Pain General: Chief Complaint: Chest Pain Stated Complaint: fast heart rate Time Seen by Provider: 06/25/23 19:08 History of Present Illness: Patient presents to the ER with left-sided chest pain heart palpitations. Patient is wearing a heart monitor currently for these heart palpitations however her phone was all day today and she said it does not send when her phone is . 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 Patient does states she has a lifting restriction at work but due to COVID they are short staffed and she was not able to follow it. Patient does say when she flexes her pack her LAD muscle the pain is worse. Patient denies any nausea vomiting shortness of breath or diaphoresis. Review of Systems General: Reports: 10 or more systems reviewed and unremarkable except in HPI and below PFSH ED PFSH: Surgical History History of nasal polypectomy Hx of cholecystectomy Social History Smoking and tobacco/nicotine status: never used tobacco/nicotine Female Reproductive History: Date of last menstrual period: 06/03/23 Physical Exam Const: COMMON NORMALS: no acute distress, average body habitus, patient oriented x3, no limitations, healthy appearing, alert and well nourished HENMT: COMMON NORMALS: normocephalic, atraumatic, hearing grossly normal bilaterally, external ears normal, Normal external nose present, moist oral mucous membranes and oropharynx normal HEAD & SCALP: normocephalic and atraumatic NOSE: Normal external nose present EXTERNAL EAR: Yes external ears normal Neck/C-Spine: COMMON NORMALS: no JVD Chest: COMMONS NORMALS: normal inspection of the chest; negative for normal palpation of entire chest wall (Tender to palpate over left lateral pectoralis musculature region) Resp: COMMON NORMALS: normal respiratory effort, No retractions, No use of accessory muscles and clear to auscultation bilaterally AUSCULTATION: clear to auscultation bilaterally Cardio: COMMON NORMALS: no JVD, regular rate, regular rhythm, S1 normal heart sound present, S2 normal heart sound present, No gallops present (Cardio), No clicks present (Cardio), No murmurs present (Cardio) and No rub (Cardio) RATE: regular rate RHYTHM: regular rhythm HEART SOUNDS: S1 normal heart sound present and S2 normal heart sound present GI: COMMON NORMALS: Normal to inspection, nondistended, normoactive bowel sounds present, Soft to palpation, non-tender, No hepatosplenomegaly present and no masses PALPATION: Yes Soft to palpation and Yes No hepatosplenomegaly present Neuro: COMMON NORMALS: patient oriented x3 SENSORIUM/ORIENTATION: Yes alert Course Vital Signs: Vital signs: Vital Signs Temperature 98.0 F 06/25/23 19:05 Pulse Rate 84 06/25/23 20:21 Respiratory Rate 16 06/25/23 20:21 Blood Pressure 109/50 06/25/23 20:21 Pulse Oximetry 98 06/25/23 20:21 MDM - Chest Pain Medical Decision Making After talking to the patient and physical exam chest pain workup was started however feel it is musculoskeletal in nature. With a negative troponin do not see the reason we will need to continue chest pain workup. Pain is reproducible and palpated. Patient be discharged home with diagnosis of musculoskeletal pain. Patient be placed on meloxicam. Differential Diagnosis Unlikely acute massive pulmonary embolism, acute respiratory failure, acute myocardial infarction, cardiac arrest or sudden cardiac Medical Records I reviewed the patient's medical records. Lab Data I reviewed the patient's lab results. 06/25/23 19:31 06/25/23 19:31 Radiology Impressions Chest X-Ray 06/25/23 19:11 IMPRESSION: No acute findings. Laboratory Results WBC 12.30 10^3/uL (4.5-13.0) 06/25/23 19:31 RBC 4.69 10^6/uL (3.85-5.65) 06/25/23 19:31 Hgb 14.10 g/dL (12.4-14.8) 06/25/23 19:31 Hct 40.6 % (36-47) 06/25/23 19:31 MCV 86.6 fl (85-98) 06/25/23 19:31 MCH 30.1 pg (27-33) 06/25/23 19:31 MCHC 34.7 g/dL (30-55) 06/25/23 19:31 RDW 12.0 % (12.1-15.1) L 06/25/23 19:31 Plt Count 426 10^3/cmm (157-399) H 06/25/23 19:31 MPV 10.0 fL (7.4-10.4) 06/25/23 19:31 Neut % (Auto) 60.6 % 06/25/23 19:31 Lymph % (Auto) 29.4 % 06/25/23 19:31 Collier % (Auto) 8.9 % 06/25/23 19:31 Eos % (Auto) 0.5 % 06/25/23 19:31 Baso % (Auto) 0.3 % 06/25/23 19: Neut # (Auto) 7.45 10^3/uL (1.8-8.0) 06/25/23 19: Lymph # (Auto) 3.6 10^3/uL (1.5-6.5) 06/25/23 19: Collier # (Auto) 1.1 10^3/uL (0.2-0.9) H 06/25/23 19:31 Eos # (Auto) 0.1 10^3/uL (0.0-0.8) 06/25/23 19: Baso # (Auto) 0.0 10^3/uL (0.0-0.1) 06/25/23 19:31 Nucleated RBC % (auto) 0 % 06/25/23 19: Nucleated RBCs # 0.0 /100WBC 06/25/23 19:31 Sodium 137 mmol/L (136-145) 06/25/23 19:31 Potassium 3.9 mmol/L (3.5-5.1) 06/25/23 19:31 Chloride 100 mmol/L (98-107) 06/25/23 19:31 Carbon Dioxide 24 mmol/L (22-29) 06/25/23 19:31 Anion Gap 16.9 (5-19) 06/25/23 19:31 BUN 10 mg/dL (6-20) 06/25/23 19:31 Creatinine 0.6 mg/dL (0.5-0.9) 06/25/23 19:31 GFR Calculation 127.5 mL/min (90-130) 06/25/23 19:31 Glucose 90 mg/dL (65-115) 06/25/23 19:31 Calculated Osmolality 283 mOsm/kg (285-295) L 06/25/23 19:31 Calcium 9.9 mg/dL (8.5-10.5) 06/25/23 19:31 Total Bilirubin 1.2 mg/dL (0.15-1.2) 06/25/23 19:31 AST 16 U/L (0-32) 06/25/23 19:31 ALT 13 U/L (0-33) 06/25/23 19:31 Alkaline Phosphatase 82 U/L (35-105) 06/25/23 19:31 Troponin T Baseline < 6 ng/L (0-10) 06/25/23 19:31 Troponin T 120 Minute 6.00 ng/L (0-10) 06/25/23 21:00 Total Protein 7.7 g/dL (6.6-8.7) 06/25/23 19:31 Albumin 5.1 g/dL (3.5-5.2) 06/25/23 19:31 Globulin 2.6 g/dL (1.3-4.6) 06/25/23 19:31 Urine Color Yellow (Yellow) 06/25/23 19:21 Urine Appearance Clear (CLEAR) 06/25/23 19:21 Urine pH 6 (5-7) 06/25/23 19:21 Ur Specific [place] 1.005 (1.005-1.030) 06/25/23 19:21 Urine Protein Neg (Negative) 06/25/23 19:21 Urine Glucose (UA) Norm (Normal) 06/25/23 19:21 Urine Ketones Negative (Negative) 06/25/23 19:21 Urine Blood Neg (Negative) 06/25/23 19:21 Urine Nitrate Negative (Negative) 06/25/23 19:21 Urine Bilirubin Neg (Negative) 06/25/23 19:21 Urine Urobilinogen Norm mg/dL (Negative) 06/25/23 19:21 Ur Leukocyte Esterase Negative (Negative) 06/25/23 19:21 Urine Opiates Screen Negative ng/mL (Negative) 06/25/23 19:21 Ur Barbiturates Screen Negative ng/mL (Negative) 06/25/23 19:21 Ur Phencyclidine Scrn Negative ng/mL (Negative) 06/25/23 19:21 Ur Amphetamines Screen Negative ng/mL (Negative) 06/25/23 19:21 U Benzodiazepines Scrn Negative ng/mL (Negative) 06/25/23 19:21 Urine Cocaine Screen Negative ng/mL (Negative) 06/25/23 19:21 U Marijuana (THC) Screen Positive ng/mL (Negative) H 06/25/23 19:21 All radiology interpretation(s) finalized by discharge EKG Data EKG 1: I personally reviewed and interpreted this EKG as follows: EKG interpretation date: 06/25/23 EKG interpretation time: 19:08 Prior EKG tracings: not available for review Interpretation: EKG showed ventricular rate 105 bpm, SC interval 128, QRS duration 77, QTc of 390, sinus tachycardia, Discharge Plan Discharge Patient Disposition: Home Clinical Impression: Musculoskeletal pain, Non-cardiac chest pain Condition: Stable Prescriptions: New meloxicam 15 mg tablet 15 mg PO DAILY Qty: 7 0RF No Action prednisone 20 mg tablet See Rx Instructions .Route .COMPLEX Qty: 11 0RF Rx Instructions: 2 tabs x 3 days, then 1 tabs x 3 days, then 1/2 tab x 3 days. aspirin 325 mg capsule 325 mg PO DAILY Qty: 30 0RF hydrocodone-acetaminophen 5-325 mg tablet 1 tab PO Q8H PRN (Reason: pain) Qty: 7 0RF doxycycline hyclate 100 mg tablet 100 mg PO BID 7 Days Qty: 14 0RF Discharge Orders: Discharge ED (Routine); Ordered 06/25/23 Ordered By: Hema Pizano Referrals: Conor Ramirez FNP [Primary Care Provider] - 1 week Patient Instructions: Chest Pain - Noncardiac, Musculoskeletal Pain (ED) Activity Restrictions/Additional Instructions: Please take all your medicines as prescribed. Please follow-up with your family practice physician within the next 7 to 10 days for further evaluation and treatment as needed. Coding Level of Care Code ED Lead Ingot Molder for Ceci Castellanos
[2023-06-25 19:25] LABS: Add Urine Microscopic? NO; Charge for UA Resulting for Rev
[2023-06-25 19:36] LABS: Bilirubin Urine Neg (Negative); Blood Urine Neg (Negative); Glucose Urine UA Norm (Normal); Ketones Urine Negative (Negative); Leukocyte Esterase Urine Negative (Negative); Nitrate Urine Negative (Negative); Protein Urine Neg (Negative); Specific Gravity, Urine 1.005 (1.005-1.030); Urine Appearance Clear (CLEAR); Urine Color Yellow (Yellow); Urobilinogen Urine Norm (Negative); pH Urine 6 (5-7)
[2023-06-25 19:37] LABS: Amphetamines Screen Urine Negative (Negative); Barbiturates Screen Urine Negative (Negative); Benzodiazepines Screen Urine Negative (Negative); Cocaine Screen Urine Negative (Negative); Opiate Screen Urine Negative (Negative); PCP Screen Urine Negative (Negative); THC Screen Urine Positive (Negative)
[2023-06-25 19:39] LABS: Basophils % 0.3 %; Eosinophils # 0.1 10^3/uL (0.0-0.8); Eosinophils % 0.5 %; Hematocrit 40.6 % (36-47); Lymphocytes # 3.6 10^3/uL (1.5-6.5); Lymphocytes % 29.4 %; Mean Corpuscular HGB Conc 34.7 g/dL (30-55); Mean Corpuscular Hemoglobin 30.1 pg (27-33); Mean Corpuscular Volume 86.6 fl (85-98); Monocytes # 1.1 10^3/uL (0.2-0.9); Monocytes % 8.9 %; Neutrophils # 7.45 10^3/uL (1.8-8.0); Neutrophils % 60.6 %; Nucleated Red Blood Cells % 0 %; Platelet Count 426 10^3/cmm (157-399); Red Blood Count 4.69 10^6/uL (3.85-5.65)
[2023-06-25 19:59] LABS: Troponin(5th) Baseline < 6 ng/L (0-10)
[2023-06-25 20:21] VITALS: BP 109/50; PULSE 84; RESP 16; O2SAT 98
[2023-06-25 20:25] LABS: Alanine Aminotransferase 13 U/L (0-33); Albumin Level 5.1 g/dL (3.5-5.2); Alkaline Phosphatase 82 U/L (35-105); Anion Gap 16.9 (5-19); Aspartate Amino Transferase 16 U/L (0-32); Blood Urea Nitrogen 10 mg/dL (6-20); Calcium 9.9 mg/dL (8.5-10.5); Carbon Dioxide 24 mmol/L (22-29); Chloride 100 mmol/L (98-107); Creatinine Clr Calc Pharmacy 150.4094; Globulin 2.6 g/dL (1.3-4.6); Glomerular Filtration Rate 127.5 mL/min (90-130); Glucose 90 mg/dL (65-115); Osmolality Calculated 283 mOsm/kg (285-295); Potassium 3.9 mmol/L (3.5-5.1); Sodium 137 mmol/L (136-145); Total Bilirubin 1.2 mg/dL (0.15-1.2); Total Protein 7.7 g/dL (6.6-8.7)
[2023-06-25 21:44] LABS: Troponin 5 2HR < 6.0 ng/L (0-10); Troponin 5 2HR Delta 0 ABS# (0-10)
[2023-06-25 21:55] VITALS: BP 109/50; PULSE 84; RESP 16; TEMP 36.7; O2SAT 98
== END 2023-06-25 21:56 | disposition home or self-care (01) ==
PROVIDERS: Emergency Provider Emergency Medicine; PCP Nurse Practitioner Family
DX: R07.89 Other chest pain (principal); M79.18 Myalgia, other site
CPT/HCPCS: 36415; 71045; 80053; 80306; 81003; 84484; 85025; 93005; 93010; 99285

== ENCOUNTER 2023-06-28 19:09 | Emergency (ER) | payer MEDICAID, SELFPAY ==
[2023-06-28 19:12] VITALS: BP 135/77; PULSE 91; RESP 16; TEMP 36.8; O2SAT 100; BMI 23.8
[2023-06-28 19:55] LABS: Basophils # 0.1 10^3/uL (0.0-0.1); Basophils % 0.5 %; Eosinophils # 0.1 10^3/uL (0.0-0.8); Eosinophils % 0.7 %; Hematocrit 38.9 % (36-47); Lymphocytes # 3.7 10^3/uL (1.5-6.5); Lymphocytes % 33.4 %; Mean Corpuscular HGB Conc 34.7 g/dL (30-55); Mean Corpuscular Hemoglobin 30.3 pg (27-33); Mean Corpuscular Volume 87.2 fl (85-98); Mean Platelet Volume 9.9 fL (7.4-10.4); Monocytes # 0.8 10^3/uL (0.2-0.9); Monocytes % 6.8 %; Neutrophils # 6.37 10^3/uL (1.8-8.0); Neutrophils % 58.1 %; Nucleated Red Blood Cells % 0 %; Platelet Count 415 10^3/cmm (157-399); Red Blood Count 4.46 10^6/uL (3.85-5.65); Red Cell Distribution Width 12.1 % (12.1-15.1); White Blood Count 10.96 10^3/uL (4.5-13.0)
[2023-06-28 20:11] LABS: Alanine Aminotransferase 10 U/L (0-33); Albumin Level 4.7 g/dL (3.5-5.2); Alkaline Phosphatase 73 U/L (35-105); Anion Gap 16.8 (5-19); Aspartate Amino Transferase 18 U/L (0-32); Blood Urea Nitrogen 7 mg/dL (6-20); Calcium 9.2 mg/dL (8.5-10.5); Carbon Dioxide 23 mmol/L (22-29); Chloride 102 mmol/L (98-107); Globulin 2.8 g/dL (1.3-4.6); Glomerular Filtration Rate 157.3 mL/min (90-130); Glucose 91 mg/dL (65-115); Lipase 20 U/L (13-60); Osmolality Calculated 284 mOsm/kg (285-295); Potassium 3.8 mmol/L (3.5-5.1); Sodium 138 mmol/L (136-145); Total Bilirubin 1.2 mg/dL (0.15-1.2); Total Protein 7.5 g/dL (6.6-8.7)
[2023-06-28 20:16] LABS: HCG, Serum Qual Negative (Negative)
== END 2023-06-28 20:31 | disposition left against medical advice (07) ==
PROVIDERS: Emergency Medicine; Emergency Provider Family Medicine; PCP Nurse Practitioner Family
DX: Z53.21 Procedure and treatment not carried out due to patient leaving prior to being seen by health care provider (principal)
CPT/HCPCS: 36415; 80053; 83690; 84703; 85025; 99283

== ENCOUNTER 2023-07-01 15:18 | Emergency (ER) | payer MEDICAID, SELFPAY ==
[2023-07-01 15:59] VITALS: BP 109/69; PULSE 96; RESP 18; TEMP 37; O2SAT 100; BMI 23.8
--- NOTE | 2023-07-01 16:36 | W.ED.EXTPRO ---
HPI - Extremity Problem General: Chief complaint: Extremity Problem,Nontraumatic Stated complaint: left leg pain Time Seen by Provider: 07/01/23 15:41 Source: patient Mode of arrival: ambulatory History of Present Illness: 18-year-old female presents emergency room with complaint of aching discomfort in her leg. She has not had any swelling she denies any chest pain or shortness of breath. She recently had an IV in her left arm is a superficial thrombophlebitis from that. She was directed to the emergency room by nurse practitioner concerned about a DVT related to superficial thrombophlebitis in the left upper arm. MD Complaint: extremity pain Associated symptoms: Deny chest pain, fever(s) or rash Review of Systems Const: Denies: fever(s) or chills Card: Denies: chest pain Resp: Denies: dyspnea GI: Denies: abdominal pain : Denies: dysuria, urinary frequency or urinary urgency Musc: Denies: neck pain or back pain Skin/Breast: Denies: rash PFSH ED PFSH: Surgical History History of nasal polypectomy Hx of cholecystectomy Social History Smoking and tobacco/nicotine status: never used tobacco/nicotine Physical Exam Const: COMMON NORMALS: no acute distress GENERAL APPEARANCE: cooperative and comfortable ORIENTATION/CONSCIOUSNESS: Yes awake, Yes oriented to person, Yes oriented to place and Yes oriented to time HENMT: COMMON NORMALS: normocephalic, atraumatic and hearing grossly normal bilaterally HEAD & SCALP: normocephalic and atraumatic Resp: COMMON NORMALS: normal respiratory effort, No retractions and No use of accessory muscles Extremity: COMMON NORMALS: normal to inspection, capillary refill normal, no clubbing, cyanosis or edema, no calf tenderness and no pedal edema Neuro: SENSORIUM/ORIENTATION: Yes oriented to person, Yes oriented to place and Yes oriented to time Skin: COMMON NORMALS: no rashes or lesions noted GENERAL SKIN EXAM: no rashes or lesions noted Course Vital Signs: Vital signs: Vital Signs Temperature 98.6 F 07/01/23 15:59 Pulse Rate 96 07/01/23 15:59 Respiratory Rate 18 07/01/23 15:59 Blood Pressure 109/69 07/01/23 15:59 Pulse Oximetry 100 07/01/23 15:59 Oxygen Delivery Me thod Room Air 07/01/23 15:59 MDM - Extremity (Nontraumatic) Medical Decision Making On exam there is no signs or symptoms of DVT Homans is negative no swelling the leg. Not particularly full swollen reddened or inflamed at all in the popliteal fossa. She does have signs of a superficial thrombophlebitis in the left antecubital space extending slightly proximal. Patient asked about having a D-dimer done to evaluate whether or not left arm had worsened. Advised patient D-dimers are not a quantitative test and does not attest that can be used to monitor status of a phlebitis. Encouraged follow-up with her primary care provider Medical Records I reviewed the patient's medical records. Lab Data I reviewed the patient's lab results. No radiology studies performed this visit Discharge Plan Discharge Patient Disposition: Home Clinical Impression: Leg pain, Thrombophlebitis arm Condition: Stable Prescriptions: No Action prednisone 20 mg tablet See Rx Instructions .Route .COMPLEX Qty: 11 0RF Rx Instructions: 2 tabs x 3 days, then 1 tabs x 3 days, then 1/2 tab x 3 days. aspirin 325 mg capsule 325 mg PO DAILY Qty: 30 0RF hydrocodone-acetaminophen 5-325 mg tablet 1 tab PO Q8H PRN (Reason: pain) Qty: 7 0RF meloxicam 15 mg tablet 15 mg PO DAILY Qty: 7 0RF Discharge Orders: Discharge ED (Routine); Ordered 07/01/23 Ordered By: Faustino Sosa Referrals: Conor Ramirez FNP [Primary Care Provider] - Discharge Diet: Usual diet Discharge Activity: Increase activity as tolerated Patient Instructions: Superficial Thrombophlebitis (ED), Opioid Safety, Pain Management Activity Restrictions/Additional Instructions: Thank you for choosing [facility] for your healthcare needs today. Please realize this is an emergency room and that we are providing you with a medical screening exam and this may not be complete and all inclusive of all the testing and or work up that you may need to determine your ailment or severity of your illness. It is very important that you follow up as instructed or that you return to the Emergency Department should you have concerns or if your condition changes or worsens in any way. Coding Level of Care Code ED Vice President Of Advertising for Ceci Castellanos
== END 2023-07-01 16:48 | disposition home or self-care (01) ==
PROVIDERS: Emergency Provider Family Medicine; PCP Nurse Practitioner Family
DX: M79.605 Pain in left leg (principal); I80.8 Phlebitis and thrombophlebitis of other sites; Z79.82 Long term (current) use of aspirin
CPT/HCPCS: 99283

== ENCOUNTER 2023-07-07 16:29 | Outpatient (CLI) | payer MEDICAID, SELFPAY ==
[2023-07-07 17:21] LABS: D Dimer 0.62 ug/mLFEU (0-0.59)
== END 2023-07-07 16:30 | disposition home or self-care (01) ==
PROVIDERS: PCP Nurse Practitioner Family; Visit Provider Nurse Practitioner Family
DX: T81.72XD Complication of vein following a procedure, not elsewhere classified, subsequent encounter (principal); I80.9 Phlebitis and thrombophlebitis of unspecified site; Y84.9 Medical procedure, unspecified as the cause of abnormal reaction of the patient, or of later complication, without mention of misadventure at the time of the procedure; R79.89 Other specified abnormal findings of blood chemistry
CPT/HCPCS: 85378

== ENCOUNTER 2023-07-14 18:57 | Emergency (ER) | payer MEDICAID, SELFPAY ==
[2023-07-14 19:16] VITALS: BP 109/67; PULSE 111; RESP 16; TEMP 36.8; O2SAT 100; BMI 23.8
[2023-07-14] MEDS: sodium chloride 0.9% 1,000 ML 999 ML IV (20:26)
[2023-07-14] MEDS: diphenhydrAMINE 50 mg/mL SDV 1mL IVP (20:27)
[2023-07-14] MEDS: metoclopramide 5 mg/mL SDV 2 mL 10 MG IVP (20:27)
--- NOTE | 2023-07-14 20:30 | ED_ITS ---
HPI - Headache 2 General: Chief Complaint: Headache Stated Complaint: headache x1 week Time Seen by Provider: 07/14/23 20:11 Source: patient Mode of arrival: ambulatory Limitations: no limitations History of Present Illness: 18-year-old female states she has had a headache over the last 5 to 6 days. States she had history of migraines this feels similar states she does have some photophobia. She has been on aspirin due to a superficial thrombophlebitis states she had some diarrhea as well. Rates her headache a 7 out of 10 currently denies this being the worst headache of her life. Associated symptoms: Deny chest pain, fever(s), nausea, rash or vomiting Review of Systems 2 Const: Denies: fever(s), chills, body aches or change in appetite ENMT: Denies: throat pain or dental pain Card: Denies: chest pain Resp: Denies: dyspnea GI: Reports: diarrhea; Denies: abdominal pain, nausea or vomiting Musc: Denies: neck pain or back pain Skin/Breast: Denies: rash Neuro: Reports: headache(s) PFSH ED 2 PFSH: Surgical History History of nasal polypectomy Hx of cholecystectomy Social History Smoking and tobacco/nicotine status: never used tobacco/nicotine Female Reproductive History: Date of last menstrual period: 06/30/23 Physical Exam 2 Const: COMMON NORMALS: no acute distress, patient oriented x3 and healthy appearing HENMT: COMMON NORMALS: normocephalic and atraumatic HEAD & SCALP: n ormocephalic and atraumatic Eye: COMMON NORMALS: Equal, round and reactive pupils present and EOMs intact bilaterally PUPIL: Yes Equal, round and reactive pupils present Neck/C-Spine: COMMON NORMALS: full ROM and supple Chest: COMMONS NORMALS: normal inspection of the chest Resp: COMMON NORMALS: normal respiratory effort Cardio: COMMON NORMALS: regular rate RATE: regular rate GI: COMMON NORMALS: Normal to inspection, nondistended, normoactive bowel sounds present, Soft to palpation, non-tender and no masses PALPATION: Yes Soft to palpation Extremity: COMMON NORMALS: normal to inspection and full ROM Neuro: COMMON NORMALS: patient oriented x3, moves all extremities and no focal motor deficits Psych: COMMON NORMALS: mental status grossly normal, Normal thought process present and cooperative THOUGHT PROCESS: Normal thought process present Skin: COMMON NORMALS: no rashes or lesions noted and no wounds GENERAL SKIN EXAM: no rashes or lesions noted Course 2 Vital Signs: Vital signs: Vital Signs Temperature 98.3 F 07/14/23 19:16 Pulse Rate 111 H 07/14/23 19:16 Respiratory Rate 16 07/14/23 19:16 Blood Pressure 109/67 07/14/23 19:16 Pulse Oximetry 100 07/14/23 19:16 MDM - Headache Medical Decision Making Patient presents here with a headaches likely migraine headache her headache is resolved here she feels much improved and wants to go home she is no signs of meningitis blood work here is normal no signs of subarachnoid hemorrhage she is to follow-up with PCP and return if worsening. Medical Records I reviewed the patient's medical records. Lab Data I reviewed the patient's lab results. 07/14/23 20:33 07/14/23 20:33 Laboratory Results WBC 7.65 10^3/uL (4.5-13.0) 07/14/23 20:33 RBC 4.47 10^6/uL (3.85-5.65) 07/14/23 20:33 Hgb 13.50 g/dL (12.4-14.8) 07/14/23 20:33 Hct 39.3 % (36-47) 07/14/23 20:33 MCV 87.9 fl (85-98) 07/14/23 20:33 MCH 30.2 pg (27-33) 07/14/23 20:33 MCHC 34.4 g/dL (30-55) 07/14/23 20:33 RDW 11.9 % (12.1-15.1) L 07/14/23 20:33 Plt Count 412 10^3/cmm (157-399) H 07/14/23 20:33 MPV 9.6 fL (7.4-10.4) 07/14/23 20:33 Neut % (Auto) 47.2 % 07/14/23 20:33 Lymph % (Auto) 42.6 % 07/14/23 20:33 [place] % (Auto) 8.2 % 07/14/23 20:33 Eos % (Auto) 1.0 % 07/14/23 20:33 Baso % (Auto) 0.7 % 07/14/23 20:33 Neut # (Auto) 3.61 10^3/uL (1.8-8.0) 07/14/23 20:33 Lymph # (Auto) 3.3 10^3/uL (1.5-6.5) 07/14/23 20:33 [place] # (Auto) 0.6 10^3/uL (0.2-0.9) 07/14/23 20:33 Eos # (Auto) 0.1 10^3/uL (0.0-0.8) 07/14/23 20:33 Baso # (Auto) 0.1 10^3/uL (0.0-0.1) 07/14/23 20:33 Nucleated RBC % (auto) 0 % 07/14/23 20:33 Nucleated RBCs # 0.0 /100WBC 07/14/23 20:33 Sodium 139 mmol/L (136-145) 07/14/23 20:33 Potassium 3.5 mmol/L (3.5-5.1) 07/14/23 20:33 Chloride 101 mmol/L (98-107) 07/14/23 20:33 Carbon Dioxide 26 mmol/L (22-29) 07/14/23 20:33 Anion Gap 15.5 (5-19) 07/14/23 20:33 BUN 8 mg/dL (6-20) 07/14/23 20:33 Creatinine 0.6 mg/dL (0.5-0.9) 07/14/23 20:33 GFR Calculation 127.5 mL/min (90-130) 07/14/23 20:33 Glucose 94 mg/dL (65-115) 07/14/23 20:33 Calculated Osmolality 286 mOsm/kg (285-295) 07/14/23 20:33 Calcium 9.5 mg/dL (8.5-10.5) 07/14/23 20:33 Total Bilirubin 1.1 mg/dL (0.15-1.2) 07/14/23 20:33 AST 18 U/L (0-32) 07/14/23 20:33 ALT 11 U/L (0-33) 07/14/23 20:33 Alkaline Phosphatase 65 U/L (35-105) 07/14/23 20:33 Total Protein 7.4 g/dL (6.6-8.7) 07/14/23 20:33 Albumin 4.9 g/dL (3.5-5.2) 07/14/23 20:33 Globulin 2.5 g/dL (1.3-4.6) 07/14/23 20:33 HCG, Qual Negative (Negative) 07/14/23 20:33 No radiology studies performed this visit Discharge Plan Discharge Patient Disposition: Home Clinical Impression: Headache Condition: Stable Prescriptions: No Action prednisone 20 mg tablet See Rx Instructions .Route .COMPLEX Qty: 11 0RF Rx Instructions: 2 tabs x 3 days, then 1 tabs x 3 days, then 1/2 tab x 3 days. aspirin 325 mg capsule 325 mg PO DAILY Qty: 30 0RF hydrocodone-acetaminophen 5-325 mg tablet 1 tab PO Q8H PRN (Reason: pain) Qty: 7 0RF meloxicam 15 mg tablet 15 mg PO DAILY Qty: 7 0RF Discharge Orders: Discharge ED (Routine); Ordered 07/14/23 Ordered By: Sky Henry Referrals: Conor Ramirez FNP [Primary Care Provider] - 1-3 days Discharge Diet: Advance as tolerated Discharge Activity: Resume usual activity Patient Instructions: General Headache (ED) Coding Level of Care Code ED Agricultural Engineering Technician for Lesleyg Jasmin
[2023-07-14 20:40] LABS: Basophils # 0.1 10^3/uL (0.0-0.1); Basophils % 0.7 %; Eosinophils # 0.1 10^3/uL (0.0-0.8); Hematocrit 39.3 % (36-47); Lymphocytes # 3.3 10^3/uL (1.5-6.5); Lymphocytes % 42.6 %; Mean Corpuscular HGB Conc 34.4 g/dL (30-55); Mean Corpuscular Hemoglobin 30.2 pg (27-33); Mean Corpuscular Volume 87.9 fl (85-98); Mean Platelet Volume 9.6 fL (7.4-10.4); Monocytes # 0.6 10^3/uL (0.2-0.9); Monocytes % 8.2 %; Neutrophils # 3.61 10^3/uL (1.8-8.0); Neutrophils % 47.2 %; Nucleated Red Blood Cells % 0 %; Platelet Count 412 10^3/cmm (157-399); Red Blood Count 4.47 10^6/uL (3.85-5.65); Red Cell Distribution Width 11.9 % (12.1-15.1); White Blood Count 7.65 10^3/uL (4.5-13.0)
[2023-07-14 21:00] LABS: Alanine Aminotransferase 11 U/L (0-33); Albumin Level 4.9 g/dL (3.5-5.2); Alkaline Phosphatase 65 U/L (35-105); Anion Gap 15.5 (5-19); Aspartate Amino Transferase 18 U/L (0-32); Blood Urea Nitrogen 8 mg/dL (6-20); Calcium 9.5 mg/dL (8.5-10.5); Carbon Dioxide 26 mmol/L (22-29); Chloride 101 mmol/L (98-107); Globulin 2.5 g/dL (1.3-4.6); Glomerular Filtration Rate 127.5 mL/min (90-130); Glucose 94 mg/dL (65-115); Osmolality Calculated 286 mOsm/kg (285-295); Potassium 3.5 mmol/L (3.5-5.1); Sodium 139 mmol/L (136-145); Total Bilirubin 1.1 mg/dL (0.15-1.2); Total Protein 7.4 g/dL (6.6-8.7)
[2023-07-14 21:08] LABS: HCG, Serum Qual Negative (Negative)
== END 2023-07-14 21:25 | disposition home or self-care (01) ==
PROVIDERS: Emergency Provider Emergency Medicine; PCP Nurse Practitioner Family
DX: R51.9 Headache, unspecified (principal); Z79.82 Long term (current) use of aspirin
CPT/HCPCS: 80053; 84703; 85025; 96361; 96374; 96375; 99284; J1200; J2765; J7030

== ENCOUNTER → 2023-08-08 11:55 | Outpatient (BNVA) | payer MEDICAID, SELFPAY | PROVIDERS: PCP Nurse Practitioner Family; Visit Provider Emergency Medicine | DX: R05.9 Cough, unspecified (principal) | CPT/HCPCS: 87400 ==

== ENCOUNTER 2023-08-25 07:08 | Emergency (ER) | payer MEDICAID, SELFPAY ==
--- NOTE | 2023-08-25 07:09 | ED_ITS ---
HPI - General Adult 2 General: Chief complaint: Back Pain/Injury Stated complaint: Fell, abd pain Time Seen by Provider: 08/25/23 07:09 Source: patient Mode of arrival: ambulatory History of Present Illness: 18-year-old female who presents to the mergency room with low back pain and coccygeal pain. Patient slipped and fell landed on the ice landed on her buttocks. She is complaining of pain over the coccyx and sacrum. She denies striking her head did not lose consciousness. She also complaining of some right-sided posterior rib pain. And some right third finger pain. Denies any lacerations. Onset (ago): minute(s) Location: chest, back and buttocks Severity: moderate Quality: sharp Pain Consistency: constant Relieving factors: none Exacerbating factors: movement Associated symptoms: Deny chest pain, confusion, cough, diaphoresis, decreased appetite, dyspnea, fevers/chills, headache(s), malaise, nausea, rash, palpitations, seizures, short of breath, syncope, vomiting or weakness Review of Systems 2 Const: Denies: fever(s), chills, malaise or diaphoresis Card: Denies: chest pain, palpitations or syncope Resp: Denies: dyspnea GI: Denies: abdominal pain, nausea or vomiting : Denies: dysuria, urinary frequency or urinary urgency Musc: Denies: neck pain or back pain Skin/Breast: Denies: rash Neuro: Denies: headache(s) or confusion PFSH ED 2 PFSH: Surgical History History of nasal polypectomy Hx of cholecystectomy Social History Smoking and tobacco/nicotine status: never used tobacco/nicotine Physical Exam 2 Const: GENERAL APPEARANCE: cooperative and comfortable O RIENTATION/CONSCIOUSNESS: Yes awake, Yes oriented to person, Yes oriented to place and Yes oriented to time HENMT: COMMON NORMALS: normocephalic, atraumatic and hearing grossly normal bilaterally HEAD & SCALP: normocephalic and atraumatic Resp: COMMON NORMALS: normal respiratory effort, No retractions, No use of accessory muscles and clear to auscultation bilaterally AUSCULTATION: clear to auscultation bilaterally Cardio: COMMON NORMALS: regular rate, regular rhythm and No murmurs present (Cardio) RATE: regular rate RHYTHM: regular rhythm GI: COMMON NORMALS: Soft to palpation and No hepatosplenomegaly present A USCULTATION: Yes normoactive bowel sounds PALPATION: Yes Soft to palpation, No Tenderness to palpation present (GI), No Guarding due to palpation present (GI) and Yes No hepatosplenomegaly present Back/Pelvis: OTHER: Pain with palpation of the sacrum and coccyx Extremity: COMMON NORMALS: normal to inspection, capillary refill normal, no clubbing, cyanosis or edema, no calf tenderness and no pedal edema OTHER: No swelling or deformity of the right third finger mildly tender to palpation along the middle phalanx Neuro: SENSORIUM/ORIENTATION: Yes oriented to person, Yes oriented to place and Yes oriented to time Skin: COMMON NORMALS: no rashes or lesions noted GENERAL SKIN EXAM: no rashes or lesions noted Course 2 Vital Signs: Vital signs: Vital Signs Temperature 97.8 F 08/25/23 07:21 Pulse Rate 100 08/25/23 07:21 Blood Pressure 113/76 08/25/23 08:25 Pulse Oximetry 100 08/25/23 08:25 Oxygen Delivery Me thod Room Air 08/25/23 07:21 MDM - General Adult Medical Decision Making Labs and imaging reviewed no acute findings. No fractures on plain films discharge home pain is musculoskeletal can use ibuprofen as needed follow-up as needed Medical Records I reviewed the patient's medical records. Lab Data I reviewed the patient's lab results. 08/25/23 07:17 08/25/23 07:17 Laboratory Results WBC 7.82 10^3/uL (4.5-13.0) 08/25/23 07:17 RBC 4.55 10^6/uL (3.85-5.65) 08/25/23 07:17 Hgb 13.70 g/dL (12.4-14.8) 08/25/23 07:17 Hct 40.7 % (36-47) 08/25/23 07:17 MCV 89.5 fl (85-98) 08/25/23 07:17 MCH 30.1 pg (27-33) 08/25/23 07:17 MCHC 33.7 g/dL (30-55) 08/25/23 07:17 RDW 12.0 % (12.1-15.1) L 08/25/23 07:17 Plt Count 404 10^3/cmm (157-399) H 08/25/23 07:17 MPV 9.7 fL (7.4-10.4) 08/25/23 07:17 Neut % (Auto) 66.8 % 08/25/23 07:17 Lymph % (Auto) 22.6 % 08/25/23 07:17 [place] % (Auto) 8.3 % 08/25/23 07:17 Eos % (Auto) 0.6 % 08/25/23 07:17 Baso % (Auto) 0.4 % 08/25/23 07:17 Neut # (Auto) 5.22 10^3/uL (1.8-8.0) 08/25/23 07:17 Lymph # (Auto) 1.8 10^3/uL (1.5-6.5) 08/25/23 07:17 [place] # (Auto) 0.7 10^3/uL (0.2-0.9) 08/25/23 07:17 Eos # (Auto) 0.1 10^3/uL (0.0-0.8) 08/25/23 07:17 Baso # (Auto) 0.0 10^3/uL (0.0-0.1) 08/25/23 07:17 Nucleated RBC % (auto) 0 % 08/25/23 07:17 Nucleated RBCs # 0.0 /100WBC 08/25/23 07:17 Sodium 139 mmol/L (136-145) 08/25/23 07:17 Potassium 4.1 mmol/L (3.5-5.1) 08/25/23 07:17 Chloride 103 mmol/L (98-107) 08/25/23 07:17 Carbon Dioxide 25 mmol/L (22-29) 08/25/23 07:17 Anion Gap 15.1 (5-19) 08/25/23 07:17 BUN 13 mg/dL (6-20) 08/25/23 07:17 Creatinine 0.5 mg/dL (0.5-0.9) 08/25/23 07:17 GFR Calculation 157.3 mL/min (90-130) H 08/25/23 07:17 Glucose 90 mg/dL (65-115) 08/25/23 07:17 Calculated Osmolality 288 mOsm/kg (285-295) 08/25/23 07:17 Calcium 9.6 mg/dL (8.5-10.5) 08/25/23 07:17 Total Bilirubin 1.3 mg/dL (0.15-1.2) H 08/25/23 07:17 AST 20 U/L (0-32) 08/25/23 07:17 ALT 13 U/L (0-33) 08/25/23 07:17 Alkaline Phosphatase 69 U/L (35-105) 08/25/23 07:17 Total Protein 7.3 g/dL (6.6-8.7) 08/25/23 07:17 Albumin 4.5 g/dL (3.5-5.2) 08/25/23 07:17 Globulin 2.8 g/dL (1.3-4.6) 08/25/23 07:17 Lipase 17 U/L (13-60) 08/25/23 07:17 HCG, Qual Negative (Negative) 08/25/23 07:17 Urine Color Yellow (Yellow) 08/25/23 07:35 Urine Appearance Sl hazy (CLEAR) A 08/25/23 07:35 Urine pH 6 (5-7) 08/25/23 07:35 Ur Specific [place] 1.020 (1.005-1.030) 08/25/23 07:35 Urine Protein Neg (Negative) 08/25/23 07:35 Urine Glucose (UA) Norm (Normal) 08/25/23 07:35 Urine Ketones 1+ (Negative) H 08/25/23 07:35 Urine Blood Neg (Negative) 08/25/23 07:35 Urine Nitrate Negative (Negative) 08/25/23 07:35 Urine Bilirubin Neg (Negative) 08/25/23 07:35 Urine Urobilinogen Neg mg/dL (Negative) 08/25/23 07:35 Ur Leukocyte Esterase Negative (Negative) 08/25/23 07:35 Urine RBC 0-4 /hpf (0-2) H 08/25/23 07:35 Urine WBC 0-4 /hpf (0-5) H 08/25/23 07:35 Ur Squamous Epith Cells 10-15 /hpf (0-5) H 08/25/23 07:35 Amorphous Sediment Not Reportable 08/25/23 07:35 Urine Bacteria 1+ /hpf (NONE) H 08/25/23 07:35 Urine Mucus 2+ /hpf 08/25/23 07:35 All radiology interpretation(s) finalized by discharge Discharge Plan Discharge Patient Disposition: Home Clinical Impression: Fall, Finger sprain, Pain, coccyx Condition: Stable Prescriptions: New diclofenac sodium 75 mg tablet,delayed release (DR/EC) 75 mg PO Q12H PRN (Reason: pain) Qty: 20 0RF Discontinued ibuprofen 600 mg tablet 600 mg PO Q8H PRN (Reason: pain) Qty: 60 0RF No Action fluticasone propionate [Flonase Allergy Relief] 50 mcg/actuation spray,suspension 2 spray intranasal DAILY Qty: 16 0RF Rx Instructions: administer into each nostril cetirizine [Zyrtec] 10 mg tablet 10 mg PO DAILY Qty: 30 0RF Discharge Orders: Discharge ED (Routine); Ordered 08/25/23 Ordered By: Faustino Sosa Referrals: Conor Ramirez FNP [Primary Care Provider] - Discharge Diet: Usual diet Discharge Activity: Increase activity as tolerated Patient Instructions: Opioid Safety, Pain Management Activity Restrictions/Additional Instructions: Thank you for choosing [facility] for your healthcare needs today. Please realize this is an emergency room and that we are providing you with a medical screening exam and this may not be complete and all inclusive of all the testing and or work up that you may need to determine your ailment or severity of your illness. It is very important that you follow up as instructed or that you return to the Emergency Department should you have concerns or if your condition changes or worsens in any way. You were seen today after a fall. X-rays did not show any fractures laboratory tests were normal. Recommend ice to affected areas as needed to relieve pain. You can use diclofenac 1 every 12 hours as needed follow-up with your primary care doctor if any worsening or changes symptoms Stand Alone Forms: Work/School Release Coding Level of Care Code ED Videotape Operator for Ceci Castellanos
[2023-08-25 07:21] VITALS: BP 131/72; PULSE 100; TEMP 36.6; O2SAT 95; BMI 23.1
--- NOTE | 2023-08-25 07:31 | XR_ITS ---
WS: [id number] PORTABLE CHEST HISTORY: trauma COMPARISON: 06/25/2023 Lungs are clear and well expanded. No pleural effusion or pneumothorax. Cardiac size: Normal. Mediastinum/Aorta: Normal mediastinum. No osseous abnormality seen. Prior cholecystectomy. IMPRESSION: Unremarkable portable chest.
--- NOTE | 2023-08-25 07:31 | XR_ITS ---
WS: [id number] SACRUM AND COCCYX TECHNIQUE: AP angled and lateral views. HISTORY: trauma COMPARISON: None available. Normal alignment of the SI joints. Sacral foramina are normal. No fracture or malalignment. Visualized bony structures are unremarkable. IMPRESSION: Negative sacrum and coccyx.
--- NOTE | 2023-08-25 07:31 | XR_ITS ---
WS: [id number] RIGHT HAND: 3 VIEW(S) TECHNIQUE: PA, oblique and lateral. HISTORY: trauma COMPARISON: None available. No acute fracture or dislocation. No soft tissue or bone abnormality. IMPRESSION: Normal RIGHT hand.
[2023-08-25 07:32] LABS: Basophils % 0.4 %; Eosinophils # 0.1 10^3/uL (0.0-0.8); Eosinophils % 0.6 %; Hematocrit 40.7 % (36-47); Lymphocytes # 1.8 10^3/uL (1.5-6.5); Lymphocytes % 22.6 %; Mean Corpuscular HGB Conc 33.7 g/dL (30-55); Mean Corpuscular Hemoglobin 30.1 pg (27-33); Mean Corpuscular Volume 89.5 fl (85-98); Mean Platelet Volume 9.7 fL (7.4-10.4); Monocytes # 0.7 10^3/uL (0.2-0.9); Monocytes % 8.3 %; Neutrophils # 5.22 10^3/uL (1.8-8.0); Neutrophils % 66.8 %; Nucleated Red Blood Cells % 0 %; Platelet Count 404 10^3/cmm (157-399); Red Blood Count 4.55 10^6/uL (3.85-5.65); White Blood Count 7.82 10^3/uL (4.5-13.0)
--- NOTE | 2023-08-25 07:32 | XR_ITS ---
WS: [id number] LUMBAR SPINE: 3 VIEWS TECHNIQUE: AP, lateral and L5-S1 spot. HISTORY: trauma COMPARISON: None available. Very mild LEFT curvature lumbar spine. No fractures. On the lateral projection no loss of height. Jose Rafael tebral body and disc spaces are normal. No loss of disc space or vertebral body height. SI joints are symmetric bilaterally. No soft tissue abnormalities. IMPRESSION: 1. No lumbar spine fracture. 2. Mild LEFT curvature lumbar spine.
[2023-08-25 07:44] LABS: HCG, Serum Qual Negative (Negative)
[2023-08-25 07:49] LABS: Alanine Aminotransferase 13 U/L (0-33); Albumin Level 4.5 g/dL (3.5-5.2); Alkaline Phosphatase 69 U/L (35-105); Anion Gap 15.1 (5-19); Aspartate Amino Transferase 20 U/L (0-32); Blood Urea Nitrogen 13 mg/dL (6-20); Calcium 9.6 mg/dL (8.5-10.5); Carbon Dioxide 25 mmol/L (22-29); Chloride 103 mmol/L (98-107); Globulin 2.8 g/dL (1.3-4.6); Glomerular Filtration Rate 157.3 mL/min (90-130); Glucose 90 mg/dL (65-115); Lipase 17 U/L (13-60); Osmolality Calculated 288 mOsm/kg (285-295); Potassium 4.1 mmol/L (3.5-5.1); Sodium 139 mmol/L (136-145); Total Bilirubin 1.3 mg/dL (0.15-1.2); Total Protein 7.3 g/dL (6.6-8.7)
[2023-08-25 08:23] LABS: Add Urine Microscopic? YES; Bilirubin Urine Neg (Negative); Blood Urine Neg (Negative); Glucose Urine UA Norm (Normal); Ketones Urine 1+ (Negative); Leukocyte Esterase Urine Negative (Negative); Nitrate Urine Negative (Negative); Protein Urine Neg (Negative); Urine Appearance SL Hazy (CLEAR); Urine Color Yellow (Yellow); Urobilinogen Urine Neg (Negative); pH Urine 6 (5-7)
[2023-08-25 08:24] LABS: Bacteria Urine 1+ /hpf; RBC Urine 0-4 /hpf (0-2); WBC Urine 0-4 /hpf (0-5)
[2023-08-25 08:25] VITALS: BP 113/76; O2SAT 100
[2023-08-25 08:25] LABS: Add Urine Culture? No; Mucus Urine 2+ /hpf
== END 2023-08-25 09:19 | disposition home or self-care (01) ==
PROVIDERS: Emergency Provider Family Medicine; PCP Nurse Practitioner Family
DX: M53.3 Sacrococcygeal disorders, not elsewhere classified (principal); S63.612A Unspecified sprain of right middle finger, initial encounter; W00.0XXA Fall on same level due to ice and snow, initial encounter
CPT/HCPCS: 36415; 71045; 72100; 72220; 73130; 80053; 81001; 83690; 84703; 85025; 99284

== ENCOUNTER → 2023-09-10 13:05 | Outpatient (BNVA) | payer MEDICAID, SELFPAY | PROVIDERS: PCP Nurse Practitioner Family; Visit Provider Nurse Practitioner Women's Health | DX: Z01.419 Encounter for gynecological examination (general) (routine) without abnormal findings (principal) | CPT/HCPCS: 81025; 84146; 84439; 84443; 84481 ==

== ENCOUNTER 2023-10-09 18:24 | Emergency (ER) | payer MEDICAID, SELFPAY ==
[2023-10-09 18:28] VITALS: BP 114/76; PULSE 94; RESP 16; TEMP 36.7; O2SAT 100; BMI 23.1
[2023-10-09 18:43] VITALS: BP 122/77; PULSE 96; RESP 15; O2SAT 98
--- NOTE | 2023-10-09 19:06 | W.ED.ABDPA2 ---
HPI - Abdominal Pain General: Chief Complaint: Abdominal Pain Stated Complaint: Urgent Care Sent Rt Side Pain Time Seen by Provider: 10/09/23 18:43 History of Present Illness: Patient presents to the ER with complaints of right lower quadrant pain rating up to the epigastric area for about the last 3 weeks. Patient describes it as sharp and stabbing when it comes on. Patient has had a cholecystectomy and she is getting some intermittent pains with her incision sites. Patient said these pains are worse when she lifts. Patient still has her appendix. Patient denies any vomiting, diarrhea, fever or chills. Patient worked all day today then went to urgent care for this pain and urgent care sent her over here to be evaluated. Related Data: Date of Last Menstrual Period: 10/03/23 Review of Systems General: Reports: 10 or more systems reviewed and unremarkable except in HPI and below PFSH ED PFSH: Surgical History History of nasal polypectomy Hx of cholecystectomy Family History Mother Heart disease Sister Stroke Grandmother Diabetes Denies family history of Colon cancer Ovarian cancer Hyperlipidemia Breast cancer Hypertension Uterine cancer Thyroid disease Social History Smoking and tobacco/nicotine status: never used tobacco/nicotine Female Reproductive History: Date of last menstrual period: 10/03/23 Physical Exam Const: COMMON NORMALS: no acute distress, average body habitus, patient oriented x3, no limitations, healthy appearing, alert and well nourished HENMT: COMMON NORMALS: normocephalic, atraumatic, hearing grossly normal bilaterally, external ears normal, Normal external nose present, moist oral mucous membranes and oropharynx normal HEAD & SCALP: normocephalic and atraumatic NOSE: Normal external nose present EXTERNAL EAR: Yes external ears normal Neck/C-Spine: COMMON NORMALS: no JVD Chest: COMMONS NORMALS: normal inspection of the chest and normal palpation of entire chest wall Resp: COMMON NORMALS: normal respiratory effort, No retractions, No use of accessory muscles and clear to auscultation bilaterally AUSCULTATION: clear to auscultation bilaterally Cardio: COMMON NORMALS: no JVD, regular rate, regular rhythm, S1 normal heart sound present, S2 normal heart sound present, No gallops present (Cardio), No clicks present (Cardio), No murmurs present (Cardio) and No rub (Cardio) RATE: regular rate RHYTHM: regular rhythm HEART SOUNDS: S1 normal heart sound present and S2 normal heart sound present GI: COMMON NORMALS: Normal to inspection, nondistended, normoactive bowel sounds present, Soft to palpation, non-tender, No hepatosplenomegaly present and no masses PALPATION: Yes Soft to palpation and Yes No hepatosplenomegaly present Neuro: COMMON NORMALS: patient oriented x3 SENSORIUM/ORIENTATION: Yes alert Course Vital Signs: Vital signs: Vital Signs Temperature 98.1 F 10/09/23 18:28 Pulse Rate 83 10/09/23 19:48 Respiratory Rate 15 10/09/23 18:43 Blood Pressure 112/72 10/09/23 22:19 Pulse Oximetry 100 10/09/23 19:48 Oxygen Delivery Me thod Room Air 10/09/23 18:28 MDM - Abdominal Pain Medical Decision Making Patient had lab work that included CBC CMP lipase and urinalysis all which essentially benign. Patient a contrasted CT scan of the abdomen pelvis which showed possible nonspecific enteritis. Patient be placed on antibiotics for this to see if it helps. Patient to follow-up with her PCP within next week. Differential Diagnosis Likely abdominal pain; Unlikely acute appendicitis, calculus of kidney, constipation, diverticulitis, endometriosis, gastroenteritis, pancreatitis or small bowel obstruction Medical Records I reviewed the patient's medical records. Lab Data I reviewed the patient's lab results. 10/09/23 19:07 10/09/23 19:07 Labs/Radiology: Radiology Impressions Abdomen/Pelvis CT 10/09/23 19:51 IMPRESSION: 1. Possible nonspecific enteritis. Otherwise no evidence of acute abnormality in the abdomen or pelvis. Normal appendix. Laboratory Results WBC 6.62 10^3/uL (4.5-13.0) 10/09/23 19:07 RBC 4.44 10^6/uL (3.85-5.65) 10/09/23 19:07 Hgb 13.60 g/dL (12.4-14.8) 10/09/23 19:07 Hct 39.7 % (36-47) 10/09/23 19: MCV 89.4 fl (85-98) 10/09/23 19:07 MCH 30.6 pg (27-33) 10/09/23 19:07 MCHC 34.3 g/dL (30-55) 10/09/23 19:07 RDW 12.1 % (12.1-15.1) 10/09/23 19:07 Plt Count 381 10^3/cmm (157-399) 10/09/23 19:07 MPV 10.0 fL (7.4-10.4) 10/09/23 19:07 Neut % (Auto) 48.2 % 10/09/23 19:07 Lymph % (Auto) 40.6 % 10/09/23 19:07 [place] % (Auto) 8.9 % 10/09/23 19:07 Eos % (Auto) 1.4 % 10/09/23 19:07 Baso % (Auto) 0.6 % 10/09/23 19:07 Neut # (Auto) 3.19 10^3/uL (1.8-8.0) 10/09/23 19:07 Lymph # (Auto) 2.7 10^3/uL (1.5-6.5) 10/09/23 19:07 [place] # (Auto) 0.6 10^3/uL (0.2-0.9) 10/09/23 19:07 Eos # (Auto) 0.1 10^3/uL (0.0-0.8) 10/09/23 19:07 Baso # (Auto) 0.0 10^3/uL (0.0-0.1) 10/09/23 19:07 Nucleated RBC % (auto) 0 % 10/09/23 19:07 Nucleated RBCs # 0.0 /100WBC 10/09/23 19:07 Sodium 139 mmol/L (136-145) 10/09/23 19:07 Potassium 4.1 mmol/L (3.5-5.1) 10/09/23 19:07 Chloride 104 mmol/L (98-107) 10/09/23 19:07 Carbon Dioxide 25 mmol/L (22-29) 10/09/23 19:07 Anion Gap 14.1 (5-19) 10/09/23 19:07 BUN 12 mg/dL (6-20) 10/09/23 19:07 Creatinine 0.4 mg/dL (0.5-0.9) L 10/09/23 19:07 GFR Calculation 203.5 mL/min (90-130) H 10/09/23 19:07 Glucose 84 mg/dL (65-115) 10/09/23 19:07 Calculated Osmolality 287 mOsm/kg (285-295) 10/09/23 19:07 Calcium 9.4 mg/dL (8.5-10.5) 10/09/23 19:07 Total Bilirubin 0.6 mg/dL (0.15-1.2) 10/09/23 19:07 AST 18 U/L (0-32) 10/09/23 19:07 ALT 13 U/L (0-33) 10/09/23 19:07 Alkaline Phosphatase 62 U/L (35-105) 10/09/23 19:07 Total Protein 7.3 g/dL (6.6-8.7) 10/09/23 19:07 Albumin 4.6 g/dL (3.5-5.2) 10/09/23 19:07 Globulin 2.7 g/dL (1.3-4.6) 10/09/23 19:07 Lipase 21 U/L (13-60) 10/09/23 19:07 HCG, Qual Negative (Negative) 10/09/23 18:56 Urine Color Yellow (Yellow) 10/09/23 18:56 Urine Appearance Cloudy (CLEAR) A 10/09/23 18:56 Urine pH 7 (5-7) 10/09/23 18:56 Ur Specific [place] 1.010 (1.005-1.030) 10/09/23 18:56 Urine Protein Neg (Negative) 10/09/23 18:56 Urine Glucose (UA) Norm (Normal) 10/09/23 18:56 Urine Ketones Negative (Negative) 10/09/23 18:56 Urine Blood Neg (Negative) 10/09/23 18:56 Urine Nitrate Negative (Negative) 10/09/23 18:56 Urine Bilirubin Neg (Negative) 10/09/23 18:56 Urine Urobilinogen Norm mg/dL (Negative) 10/09/23 18:56 Ur Leukocyte Esterase Negative (Negative) 10/09/23 18:56 Urine RBC None /hpf (0-2) 10/09/23 18:56 Urine WBC None /hpf (0-5) 10/09/23 18:56 Ur Squamous Epith Cells 0-4 /hpf (0-5) H 10/09/23 18:56 Amorphous Sediment 3+ /hpf 10/09/23 18:56 Urine Bacteria Trace /hpf (NONE) 10/09/23 18:56 Urine Mucus None /hpf 10/09/23 18:56 All radiology interpretation(s) finalized by discharge Discharge Plan Discharge Patient Disposition: Home Clinical Impression: Enteritis Condition: Stable Prescriptions: New ciprofloxacin HCl 500 mg tablet 500 mg PO Q12H Qty: 20 0RF Discharge Orders: Discharge ED (Routine); Ordered 10/09/23 Ordered By: Hema Pizano Referrals: Conor Ramirez FNP [Primary Care Provider] - 1 week Patient Instructions: Opioid Safety, Pain Management Activity Restrictions/Additional Instructions: Please take all your antibiotics as directed. Please follow-up with your family practice physician when finished as needed. If your symptoms worsen or return please feel free to return to the ER. Coding Level of Care Code ED Sales Representative [employer] for Ceci Castellanos
[2023-10-09 19:26] LABS: HCG Qualitative Urine. Negative (Negative)
[2023-10-09 19:36] LABS: Basophils % 0.6 %; Eosinophils # 0.1 10^3/uL (0.0-0.8); Eosinophils % 1.4 %; Hematocrit 39.7 % (36-47); Lymphocytes # 2.7 10^3/uL (1.5-6.5); Lymphocytes % 40.6 %; Mean Corpuscular HGB Conc 34.3 g/dL (30-55); Mean Corpuscular Hemoglobin 30.6 pg (27-33); Mean Corpuscular Volume 89.4 fl (85-98); Monocytes # 0.6 10^3/uL (0.2-0.9); Monocytes % 8.9 %; Neutrophils # 3.19 10^3/uL (1.8-8.0); Neutrophils % 48.2 %; Nucleated Red Blood Cells % 0 %; Platelet Count 381 10^3/cmm (157-399); Red Blood Count 4.44 10^6/uL (3.85-5.65); Red Cell Distribution Width 12.1 % (12.1-15.1); White Blood Count 6.62 10^3/uL (4.5-13.0)
[2023-10-09 19:47] LABS: Alanine Aminotransferase 13 U/L (0-33); Albumin Level 4.6 g/dL (3.5-5.2); Alkaline Phosphatase 62 U/L (35-105); Anion Gap 14.1 (5-19); Aspartate Amino Transferase 18 U/L (0-32); Blood Urea Nitrogen 12 mg/dL (6-20); Calcium 9.4 mg/dL (8.5-10.5); Carbon Dioxide 25 mmol/L (22-29); Chloride 104 mmol/L (98-107); Creatinine Clr Calc Pharmacy 217.9032; Globulin 2.7 g/dL (1.3-4.6); Glomerular Filtration Rate 203.5 mL/min (90-130); Glucose 84 mg/dL (65-115); Lipase 21 U/L (13-60); Osmolality Calculated 287 mOsm/kg (285-295); Potassium 4.1 mmol/L (3.5-5.1); Sodium 139 mmol/L (136-145); Total Bilirubin 0.6 mg/dL (0.15-1.2); Total Protein 7.3 g/dL (6.6-8.7)
[2023-10-09 19:48] VITALS: BP 103/58; PULSE 83; O2SAT 100
[2023-10-09 19:48] LABS: Urine Color Yellow (Yellow)
[2023-10-09 19:49] LABS: Add Urine Microscopic? YES; Bilirubin Urine Neg (Negative); Blood Urine Neg (Negative); Glucose Urine UA Norm (Normal); Ketones Urine Negative (Negative); Leukocyte Esterase Urine Negative (Negative); Nitrate Urine Negative (Negative); Protein Urine Neg (Negative); Urine Appearance Cloudy (CLEAR); Urobilinogen Urine Norm (Negative); pH Urine 7 (5-7)
[2023-10-09 19:51] LABS: Add Urine Culture? No; Amorphous Sediment Urine 3+ /hpf; Bacteria Urine TRACE /hpf; Squamous Epithelial Cell Urine 0-4 /hpf (0-5)
--- NOTE | 2023-10-09 19:51 | CTR_ITS ---
PROCEDURE INFORMATION: Exam: CT Abdomen And Pelvis With Contrast Exam date and time: 10/09/2023 8:58 PM Age: 18 years old Clinical indication: Abdominal pain; Localized; Right; Prior surgery; Surgery date: 6+ months; Surgery type: Gb; Patient HX: C/O RT sided abd pain; Additional info: Intermittent rlq abd pain radiates to umbilicus TECHNIQUE: Imaging protocol: Computed tomography of the abdomen and pelvis with contrast. Radiation optimization: All CT scans at this facility use at least one of these dose optimization techniques: automated exposure control; mA and/or kV adjustment per patient size (includes targeted exams where dose is matched to clinical indication); or iterative reconstruction. Contrast material: OMNI 350; Contrast volume: 100 ml; Contrast route: INTRAVENOUS (IV); COMPARISON: CT abdomen pelvis w con* [id number] 06/09/2022 8:32 PM RADIATION DOSE METRICS: Total DLP (mGy-cm): 394.27 FINDINGS: Lungs: Subsegmental bibasilar atelectasis. The visualized lung bases are otherwise grossly clear. Diaphragm: No evidence of diaphragmatic defect. Liver: Hepatic steatosis. No evidence of focal hepatic lesion. Gallbladder and bile ducts: Status post cholecystectomy. No evidence of intrahepatic or extrahepatic biliary dilatation. Pancreas: Unremarkable. Spleen: Unremarkable. Adrenal glands: Unremarkable. Kidneys and ureters: No renal parenchymal abnormality. No hydronephrosis or ureteral stone. Stomach and bowel: No evidence of bowel obstruction or perienteric inflammatory changes. Mildly thickened loops of small bowel raising the question of a nonspecific enteritis. Appendix: Normal appendix. Intraperitoneal space: No evidence of free air or fluid collection. Vasculature: No aneurysmal dilatation or dissection of the abdominal aorta. The celiac trunk, SMA and THANIA are grossly patent. No evidence of IVC thrombus. The portal vein, SMV and splenic veins are grossly patent. Lymph nodes: No adenopathy. Urinary bladder: Grossly unremarkable. Reproductive: Grossly unremarkable. Bones/joints: No evidence of acute fracture or aggressive osseous lesion. Soft tissues: No evidence of fluid collection or hematoma in the superficial soft tissues. CT/CT abdomen pelvis w con* [id number] IMPRESSION: 1. Possible nonspecific enteritis. Otherwise no evidence of acute abnormality in the abdomen or pelvis. Normal appendix.
[2023-10-09] MEDS: iohexol 350 mg/mL 500 mL Btl (per mL) IV (21:01)
[2023-10-09] MEDS: ciprofloxacin 500 mg Tablet PO (22:17)
[2023-10-09 22:19] VITALS: BP 112/72
== END 2023-10-09 22:28 | disposition home or self-care (01) ==
PROVIDERS: Emergency Provider Emergency Medicine; PCP Nurse Practitioner Family
DX: K52.9 Noninfective gastroenteritis and colitis, unspecified (principal)
CPT/HCPCS: 36415; 74177; 80053; 81001; 81025; 83690; 85025; 99285; Q9967

== ENCOUNTER → 2023-11-02 10:40 | Outpatient (BNVA) | payer MEDICAID, SELFPAY | PROVIDERS: PCP Nurse Practitioner Family; Visit Provider Emergency Medicine | DX: J02.9 Acute pharyngitis, unspecified (principal) | CPT/HCPCS: 87071; 87880 ==

== ENCOUNTER → 2023-11-24 18:17 | Outpatient (BNVA) | payer MEDICAID, SELFPAY | PROVIDERS: PCP Nurse Practitioner Family; Visit Provider Nurse Practitioner | DX: R39.9 Unspecified symptoms and signs involving the genitourinary system (principal) | CPT/HCPCS: 81000 ==

== ENCOUNTER → 2023-12-21 10:25 | Outpatient (BNVA) | payer MEDICAID, SELFPAY | PROVIDERS: PCP Nurse Practitioner Family | DX: R09.81 Nasal congestion (principal) | CPT/HCPCS: 87400 ==

== ENCOUNTER 2024-03-21 09:00 | Emergency (ER) | payer MEDICAID, SELFPAY ==
[2024-03-21 09:12] VITALS: BP 114/71; PULSE 107; RESP 16; TEMP 36.5; O2SAT 100
--- NOTE | 2024-03-21 09:17 | ED_ITS ---
HPI - Headache General: Chief Complaint: Headache Stated Complaint: Headache 8 weeks Time Seen by Provider: 03/21/24 09:12 Source: patient Mode of arrival: ambulatory Limitations: no limitations History of Present Illness: 38-year-old female states she is current ly 8 weeks states she has had a headache for the last 2 days she states that it is a right sided headache she has a history of migraines states that started gradually and is gradually worsened is currently an 8 out of 10 denies this being the worst headache of her life denies any vomiting has some photophobia and phonophobia. Associated symptoms: Deny chest pain, fever(s), nausea, rash or vomiting Related Data Previous Rx's Medication Instructions Recorded ibuprofen 800 mg tablet 800 mg PO Q8H PRN pain #30 tabs 11/02/23 nitrofurantoin 100 mg PO Q12H 7 days #14 caps 11/24/23 monohydrate/macrocrystals 100 mg capsule (Macrobid) azithromycin 500 mg tablet 500 mg PO DAILY 5 days #5 tabs 12/21/23 (Zithromax) cetirizine 10 mg tablet (Zyrtec) 10 mg PO DAILY #30 tabs 12/21/23 Allergies Allergy/AdvReac Type Severity Reaction Status Date / Time amoxicillin Allergy Intermediate ADR-Seizure Verified 03/21/24 09:20 Penicillins Allergy Intermediate ADR-Seizure Verified 03/21/24 09:20 Review of Systems Const: Denies: fever(s), chills, body aches or change in appetite Eyes: Denies: blurry vision or eye discomfort ENMT: Denies: throat pain or dental pain Card: Denies: chest pain Resp: Denies: dyspnea GI: Denies: abdominal pain, nausea, vomiting or diarrhea Musc: Denies: neck pain or back pain Skin/Breast: Denies: rash Neuro: Reports: headache(s) PFSH ED PFSH: Surgical History History of nasal polypectomy Hx of cholecystectomy Family History Mother Heart disease Sister Stroke Grandmother Diabetes Denies family history of Colon cancer Ovarian cancer Hyperlipidemia Breast cancer Hypertension Uterine cancer Thyroid disease Social History Smoking and tobacco/nicotine status: never used tobacco/nicotine Physical Exam Const: COMMON NORMALS: no acute distress, patient oriented x3 and healthy appearing HENMT: COMMON NORMALS: normocephalic and atraumatic HEAD & SCALP: normocephalic and atraumatic Eye: COMMON NORMALS: Equal, round and reactive pupils present and EOMs intact bilaterally PUPIL: Yes Equal, round and reactive pupils present Neck/C-Spine: COMMON NORMALS: full ROM, supple and no meningeal signs Chest: COMMONS NORMALS: normal inspection of the chest Resp: COMMON NORMALS: normal respiratory effort Cardio: COMMON NORMALS: regular rate RATE: regular rate Extremity: COMMON NORMALS: normal to inspection and full ROM Neuro: COMMON NORMALS: patient oriented x3, moves all extremities and no focal motor deficits MENINGEAL SIGNS: Yes no meningeal signs Psych: COMMON NORMALS: mental status grossly normal, Normal thought process present and cooperative THOUGHT PROCESS: Normal thought process present Skin: COMMON NORMALS: no rashes or lesions noted and no wounds GENERAL SKIN EXAM: no rashes or lesions noted Course Vital Signs: Vital signs: Vital Signs Temperature 97.7 F 03/21/24 09:12 Pulse Rate 78 03/21/24 10:20 Respiratory Rate 16 03/21/24 09:12 Blood Pressure 99/67 03/21/24 10:20 Pulse Oximetry 96 03/21/24 10:20 Oxygen Delivery Me thod Room Air 03/21/24 09:12 MDM - Headache Medical Decision Making Patient presents here with headaches likely migraine or tension headache her headaches much improved after IV meds she has no signs of meningitis or subarachnoid hemorrhage she is stable for discharge follow-up with PCP return if worsening she understands agrees to plan. Medical Records I reviewed the patient's medical records. No radiology studies performed this visit Discharge Plan Discharge Patient Disposition: Home Clinical Impression: Headache Condition: Stable Prescriptions: No Action cetirizine [Zyrtec] 10 mg tablet 10 mg PO DAILY Qty: 30 0RF azithromycin [Zithromax] 500 mg tablet 500 mg PO DAILY 5 Days Qty: 5 0RF ibuprofen 800 mg tablet 800 mg PO Q8H PRN (Reason: pain) Qty: 30 0RF nitrofurantoin monohyd/m-cryst [Macrobid] 100 mg capsule 100 mg PO Q12H 7 Days Qty: 14 0RF Rx Instructions: must administer with a meal/food Discharge Orders: Discharge ED (Routine); Ordered 03/21/24 Ordered By: Sky Henry Referrals: Conor Ramirez FNP [Primary Care Provider] - Discharge Diet: Advance as tolerated Discharge Activity: Resume usual activity Patient Instructions: General Headache (ED) Coding Level of Care Code ED Wa[employer] for Ceci Castellanos
[2024-03-21] MEDS: sodium chloride 0.9% 1,000 ML 999 ML IV (09:46)
[2024-03-21] MEDS: ondansetron 2 mg/ML SDV 2 mL 4 MG IVP (09:47)
[2024-03-21] MEDS: acetaminophen 1,000 MG/100 ML PIGGYBACK 400 MG IV (09:49)
[2024-03-21 09:52] VITALS: BP 106/64; PULSE 80; O2SAT 100
[2024-03-21 10:20] VITALS: BP 99/67; PULSE 78; O2SAT 96
[2024-03-21 10:33] VITALS: BP 100/80; PULSE 81; O2SAT 96
== END 2024-03-21 10:34 | disposition home or self-care (01) ==
PROVIDERS: Emergency Provider Emergency Medicine; PCP Nurse Practitioner Family
DX: R51.9 Headache, unspecified (principal)
CPT/HCPCS: 96374; 96375; 99284; J0131; J2405; J7030

== ENCOUNTER → 2024-07-17 10:21 | Outpatient (BNVA) | payer MEDICAID, SELFPAY | PROVIDERS: PCP Nurse Practitioner Family | DX: J02.9 Acute pharyngitis, unspecified (principal) | CPT/HCPCS: 87071; 87880 ==

== ENCOUNTER 2024-09-01 12:20 | Outpatient (CLI) | payer MEDICAID, SELFPAY ==
[2024-09-01] VITALS (7 sets, daily range): BP systolic 109–139; BP diastolic 70–77; PULSE 85–122; RESP 16; O2SAT 98; BMI 26.9
[2024-09-01 13:02] LABS: Bilirubin Urine Negative (Negative); Blood Urine Negative (Negative); Glucose Urine UA Negative (Normal); Ketones Urine Negative (Negative); Leukocyte Esterase Urine Negative (Negative); Nitrate Urine Negative (Negative); Protein Urine Negative (Negative); Specific Gravity, Urine 1.009 (1.005-1.030); Urine Appearance Clear (CLEAR); Urine Color Yellow (Yellow); Urobilinogen Urine 0.2 mg/dL (Negative)
[2024-09-01 13:04] LABS: Bacteria Urine None Seen /hpf; Hyaline Casts Urine 0-4 /lpf; RBC Urine 0-2 /hpf (0-2); Squamous Epithelial Cell Urine 0-5 /hpf (0-5); WBC Urine 0-5 /hpf (0-5)
[2024-09-01] MEDS: acetaminophen 500 mg Tablet 1000 MG PO (13:57)
== END 2024-09-01 14:05 | disposition home or self-care (01) ==
LOC: OPOB 12:27 → OBGYN 12:27
PROVIDERS: Visit Provider Family Medicine
DX: Z46.89 Encounter for fitting and adjustment of other specified devices (principal); R10.9 Unspecified abdominal pain
CPT/HCPCS: 59025; 81001; 99211